=== PATIENT | female | born 1945 | race Caucasian/White ===

== ENCOUNTER 2016-12-30 20:30 | Outpatient (CLI) | payer MEDICARE | END 2016-12-30 20:31 | disposition home or self-care (01) | LOC: SLEEPLAB 20:30 | PROVIDERS: ATTEND Physician Assistant | DX: G47.33 Obstructive sleep apnea (adult) (pediatric) (principal); E11.9 Type 2 diabetes mellitus without complications; I10 Essential (primary) hypertension; K21.9 Gastro-esophageal reflux disease without esophagitis; G47.00 Insomnia, unspecified; R35.1 Nocturia; F41.9 Anxiety disorder, unspecified; G47.10 Hypersomnia, unspecified | CPT/HCPCS: 95810 ==

== ENCOUNTER 2017-03-17 20:30 | Outpatient (CLI) | payer MEDICARE | END 2017-03-17 20:31 | disposition home or self-care (01) | LOC: SLEEPLAB 20:30 | PROVIDERS: ATTEND Physician Assistant | DX: G47.33 Obstructive sleep apnea (adult) (pediatric) (principal); R06.83 Snoring; R53.83 Other fatigue; R51 Headache; E66.9 Obesity, unspecified; K21.9 Gastro-esophageal reflux disease without esophagitis; E11.9 Type 2 diabetes mellitus without complications; F41.9 Anxiety disorder, unspecified; R35.1 Nocturia | CPT/HCPCS: 95811 ==

== ENCOUNTER 2019-09-30 12:21 | Inpatient (IN) | payer MEDICARE, OTHER ==
[~2019-09-30 12:21] MED LIST: Atropine Sulfate 1 mg/10 ml Syringe ONE
[2019-09-30] MEDS ORDERED: Furosemide 40 MG/4 ML VIAL ONE (13:20)
[2019-09-30 17:32] LABS: CKMB 2.5 ng/mL (0-6.6)
[2019-09-30] MEDS ORDERED: Acetaminophen 500 MG TAB PO PRN (19:22)
[2019-09-30] MEDS ORDERED: Dextrose 50% Abboject 50 ML SYRINGE SLOW IVP PRN (19:22)
[2019-09-30] MEDS ORDERED: Ondansetron PF 4 MG/2 ML Vial IVP PRN (19:22)
[2019-09-30] MEDS ORDERED: Dextrose 5% in Water 1,000 ML IV PRN (19:22)
[2019-09-30] MEDS ORDERED: Ondansetron ODT 4 MG TAB PO PRN (19:22)
[2019-09-30] MEDS ORDERED: HumaLOG 300 UNITS/3 ML VIAL SC PRN (19:22)
[2019-09-30] MEDS ORDERED: hydrALAZINE 20 MG/ML VIAL SLOW IVP PRN (19:22)
[2019-09-30] MEDS ORDERED: Mometasone 200 MCG/Formoterol 5 MCG 120 PUFF INHALER INH SCH (20:30)
--- NOTE | 2019-09-30 20:40 | HP ---
PRIMARY CARE PROVIDER: Helen Cardenas. CHIEF COMPLAINT: Shortness of breath. HISTORY OF PRESENT ILLNESS: This is a 74-year-old female, who presents to [facility] Emergency Department complaining of progressive shortness of breath with associated swelling of the lower extremities with dyspnea on exertion. The patient has noted progressive swelling with a recent increase of her Lasix from 20 to 40 mg over the last several days without improvement. The patient states she normally ambulates performing most activities of daily living, but has become increasingly short of breath with exertion. The patient states she has difficulty laying flat with becoming short of breath as well. The patient denies any known prior history of congestive heart failure or hospitalizations for the same condition. The patient admits to increased home stress with illness to her daughter, as well as taking care of her . The patient denied any specific change to her chronic medication regimens and states she was recently treated for urinary tract infection in the last 2 to 3 weeks. The patient denied any documented fever, chills, or hemoptysis. The patient denied any change to her bowel habits. The patient denied any specific travel history. In the emergency room, the patient underwent general evaluation including chest imaging showing pulmonary edema bilaterally. BNP greater than 500 at which point patient received Lasix 40 mg IV push x1 dose. The patient was transferred to the telemetry unit for further evaluation. PAST MEDICAL HISTORY: 1. Hypertension. 2. Diabetes mellitus type 2. 3. Morbid obesity. 4. Asthma. 5. Depression. 6. Degenerative joint disease. PAST SURGICAL HISTORY: 1. Status post appendectomy. 2. Status post hysterectomy. 3. Status post tonsillectomy. 4. Status post bilateral tubal ligation. CURRENT MEDICATIONS: 1. Symbicort 160/4.5 two puffs inhaled b.i.d. 2. Prozac 20 mg p.o. at bedtime. 3. Furosemide 40 mg p.o. daily. 4. Losartan/HCTZ 100/25 mg one tablet p.o. daily. 5. Pregabalin 100 mg p.o. b.i.d. 6. Restasis one drop to each eye daily. ALLERGIES: NO KNOWN DRUG ALLERGIES. FAMILY HISTORY: Positive for hypertension. SOCIAL HISTORY: , residing in [place], [place]. Retired. Limited ability to perform activities of daily living due to degenerative joint disease and shortness of breath. No alcohol, tobacco, or illicit drug use. REVIEW OF SYSTEMS: CONSTITUTIONAL: Negative for weight loss or gain, ability to conduct usual activities. SKIN: Negative for rash, itching. EYES: Negative for double vision, pain. ENT/MOUTH: Negative for nose bleeding, neck stiffness, pain, tenderness. CARDIOVASCULAR: Negative for palpitations, dyspnea on exertion, orthopnea. RESPIRATORY: Negative for shortness of breath, wheezing, cough, hemoptysis, fever or night sweats. GASTROINTESTINAL: Negative for poor appetite, abdominal pain, heartburn, nausea, vomiting, constipation, or diarrhea. GENITOURINARY: Negative for urgency, frequency, dysuria, nocturia. MUSCULOSKELETAL: Negative for pain, swelling. NEUROLOGIC/PSYCHIATRIC: Negative for anxiety, depression. ALLERGY/IMMUNOLOGIC: Negative for skin rash, bleeding tendency. Otherwise negative except as stated per HPI. PHYSICAL EXAMINATION: VITAL SIGNS: Blood pressure 173/81, pulse 82, respiratory rate 18, temperature 98.4 degrees Fahrenheit, O2 saturation 96% on room air. GENERAL APPEARANCE: This is a 74-year-old female, alert and oriented x3, pleasant, smiling, in no acute distress. HEENT: Pupils are equal, round, reactive to light and accommodation. Extraocular muscles are intact. No scleral icterus. No conjunctival injection. Nares patent. OP is clear. Teeth in fair repair. NECK: Supple. No cervical adenopathy. No thyromegaly. No carotid bruits. No JVD appreciated. Cervical spine with limited range of motion in the terminal degrees of rotation and extension. CHEST: Diminished breath sounds bilaterally with basilar crackles. CARDIOVASCULAR: S1 and S2 with distant heart sounds. No murmur, rub, or gallop appreciated. ABDOMEN: Obese. Soft with tenderness to palpation in the left upper quadrant. No palpable mass. Landmarks are difficult to palpate due to patient's body habitus. Bowel sounds positive in all 4 quadrants. EXTREMITIES: Warm and dry with fair turgor. 1 to 2+ pitting edema in bilateral lower extremities. Pulses palpable distally at the dorsalis pedis, posterior tibial, and popliteal arteries bilaterally. Capillary refill less than 2 seconds. NEUROLOGIC: Cranial nerves 2 through 12 are grossly intact. No focal or lateralizing signs appreciated. PERTINENT LABORATORY AND X-RAY FINDINGS: Sodium 142, potassium 4.4, chloride 106, CO2 of 25, BUN 20, creatinine 0.96, estimated GFR 57, glucose 166, calcium 9.8. LFTs within normal limits. Troponin I ranged between 0.106 to 0.125. BNP 508, previously noted 37, 03/24/2014. CBC showed a white blood cell count of 9.0, hemoglobin 11, hematocrit 36, platelet count 206 with normal differential. Urinalysis dated 09/30/2019, positive for protein, nitrite and small leukocyte esterase. 21 to 50 wbc's per high-power field, 4-6 squamous epithelial cells with 1+ bacteria. EKG dated 09/30/2019, by my interpretation shows sinus mechanism with first-degree AV block. Normal R-wave progression noted in the precordial leads. Normal axis. No acute ST-T wave changes appreciated. ASSESSMENT AND PLAN: 1. New onset congestive heart failure exacerbation. The patient will be admitted to the telemetry unit. We will obtain 2D transthoracic echocardiogram for valvular assessment in conjunction with ejection fraction and wall motion determination. Consider ischemic workup including potential left heart catheterization. Continue aspirin 81 mg daily. Lasix 40 mg IV b.i.d. Consult Cardiology Service in the a.m. Check TSH level. 2. Dyspnea on exertion secondary to #1. We will continue oxygen supplementation as needed to maintain O2 saturations greater than or equal to 90%. See #1 above. 3. Elevated troponin I. Question of type 2 myocardial infarction not in the context of demand ischemia due to #1. Consult Cardiology Service in the a.m. for any further recommendations. 4. Hypertension. Resume home blood pressure regimen and monitor clinical response. P.r.n. hydralazine. 5. Diabetes mellitus type 2. Confirm home diabetic regimen. Insulin sliding scale for reflexive coverage. ADA diet. 6. Prophylaxis. SCDs while in bed. Pepcid 20 mg p.o. b.i.d. PT evaluation for functional assessment in the a.m. 7. Code status is do not attempt resuscitation confirmed with the patient. Surrogate medical decision maker is the patient's spouse. Job ID: [id number]
[2019-09-30 21:13] LABS: Troponin I 0.123 ng/mL (< 0.028)
[2019-09-30] MEDS: Pregabalin 50 MG CAP PO SCH (21:28)
[2019-09-30] MEDS: FLUoxetine HCl 20 MG CAP PO SCH (21:30)
[2019-09-30] MEDS: HumaLOG 300 UNITS/3 ML VIAL SC PRN (21:33)
[2019-10-01 04:58] LABS: Band 1 % (5-11); Eosinophils 2 % (0-10); Hemoglobin 10.8 g/dL (12.0-16.0); Hypochromia SLIGHT = 6-15 cells (100X) (0-5/hpf); Lymphocytes 23 % (21-51); MDiff Complete? YES; Mean Corpuscular HGB CONC 32.4 g/dL (32.0-36.0); Mean Corpuscular Hemoglobin 28.6 pg (27.0-31.0); Mean Corpuscular Volume 88.2 fL (78.0-98.0); Mean Platelet Volume 9.3 fL (7.4-10.4); Monocytes 7 % (0-10); Neutrophil 67 % (42-75); Platelet Count 191 thou/uL (130-400); Platelet Morphology Comment Appears Adequate; RBC Distribution Width 13.3 % (11.5-14.5); Red Blood Cell (RBC) Count 3.76 mill/uL (4.20-5.40)
[2019-10-01 05:29] LABS: Anion Gap 9 mmol/L (10-20); BUN (Urea Nitrogen) 20 mg/dL (9.8-20.1); Calc. Creatinine Clearance 96 mL/min (70-130); Calcium 9.4 mg/dL (7.8-10.44); Carbon Dioxide 28 mmol/L (23-31); Cardiac Risk 6.7 (Less than 4.5); Chloride 106 mmol/L (98-107); Cholesterol 180 mg/dl (< 200 Desired); Estimated GFR-MDRD 51; Glucose 169 mg/dL (83-110); HDL Cholesterol 27 mg/dL (>60 Neg Risk); LDL Cholesterol, Calculated 126 mg/dL; Potassium 4.3 mmol/L (3.5-5.1); Sodium 139 mmol/L (136-145); Triglycerides 136 mg/dL (Less than 150)
[2019-10-01] MEDS: Furosemide 40 MG/4 ML VIAL SLOW IVP SCH ×2 (05:41→12:56)
[2019-10-01] MEDS: Mometasone 200 MCG/Formoterol 5 MCG 120 PUFF INHALER INH SCH ×2 (07:52→18:46)
[2019-10-01] MEDS: Losartan/Hydrochlorothiazide 100 mg/25 mg Tablet PO SCH (09:02)
[2019-10-01] MEDS: Pregabalin 50 MG CAP PO SCH ×2 (09:02→20:24)
[2019-10-01] MEDS: Aspirin 81 mg Enteric Coated Tablet PO SCH (09:09)
[2019-10-01] MEDS ORDERED: Communication Order-Pharmacy FS SCH (11:30)
--- NOTE | 2019-10-01 12:21 | CON ---
DATE OF CONSULTATION: HISTORY OF PRESENT ILLNESS: The patient is a 74-year-old woman, who presented with increasing dyspnea and lower extremity swelling. The patient has previously undergone a cardiac evaluation many years ago. She states she underwent a cardiac catheterization,and was found to have only mild coronary artery disease. The patient suffers from diabetes mellitus and morbid obesity. For the past few months she started noting having increasing lower extremity swelling. She reported having dyspnea on exertion. The patient went to see a electrical logger, who stated that she had evidence of significant asthma. She was placed on inhalers. The patient continues to be dyspneic. The patient also has reported for the past few months having substernal chest discomfort. She states this occurs with exertion. The discomfort is also associated with discomfort radiating down both her arms. This seems to be relieved with rest. The patient has multiple cardiac risk factors including diabetes mellitus, hypertension, and a family history of coronary artery disease. PAST MEDICAL HISTORY: 1. Asthma. 2. Diabetes mellitus. 3. Dyslipidemia. 4. Morbid obesity. 5. Depression. PAST SURGICAL HISTORY: Appendectomy, hysterectomy, tonsillectomy, and tubal ligation. MEDICATIONS ON ADMISSION: 1. Losartan/HCTZ 2. Symbicort 160/4.5 two puffs b.i.d. 3. Prozac 20 at bedtime. ALLERGIES: NO KNOWN DRUG ALLERGIES. SOCIAL HISTORY: Nonsmoker. REVIEW OF SYSTEMS: Ten-point system otherwise unremarkable. FAMILY HISTORY: There is a positive family history of heart disease. SOCIAL HISTORY: Nonsmoker. ALLERGIES: NO KNOWN DRUG ALLERGIES. PHYSICAL EXAMINATION: GENERAL: Morbidly obese woman, in no acute distress. VITAL SIGNS: Blood pressure 123/60. NECK: No jugular venous distention. LUNGS: Clear to auscultation. HEART: Regular rate and rhythm. Normal S1 and S2. No murmurs. ABDOMEN: Markedly distended. EXTREMITIES: Moderate bilateral edema. VASCULAR: Radial pulses 2+. LABORATORY DATA: Sodium 139, potassium 4.3, chloride 106, bicarbonate 28, BUN 20, creatinine 1.0, and glucose 169. Troponin is 0.123. White blood cell count 6.0 , hemoglobin 10.8, hematocrit 33.2, and platelets 191. DIAGNOSTIC DATA: EKG Normal sinus rhythm with first-degree AV block. IMPRESSION: 1. Congestive heart failure, probably secondary to diastolic dysfunction and cor pulmonale. 2. Exertional chest discomfort suspicious for ischemic heart disease. 3. Hypertension. 4. Diabetes mellitus. 5. Asthma. 6. Morbid obesity. This patient presents with congestive heart failure, probably secondary to diastolic dysfunction. We will check the patient's echocardiogram. We will start the patient on lipid-lowering medication. Further recommendation will follow. Job ID: [id number] MTDD
--- NOTE | 2019-10-01 12:48 | PDOC.HOSPP ---
- Subjective Encounter Date: 10/01/19 Encounter Time: 12:40 Subjective: f/u for new-onset CHF and ? cardiac ischemia. Feels better overall and diuresing with IV Lasix. Likely will have LHC in am. - Objective Vital Signs & Weight: Vital Signs (12 hours) Temp Pulse Pulse Pulse Resp BP BP 10/01/19 11:18 97.6 F 80 17 10/01/19 09:35 65 73 138/65 145/68 H 10/01/19 07:00 98.5 F 61 16 10/01/19 03:42 98.7 F 76 18 BP Pulse Ox 10/01/19 11:18 135/58 L 97 10/01/19 09:35 10/01/19 07:00 123/60 96 10/01/19 03:42 146/57 H 94 L Weight Weight 282 lb 9.6 oz I&O: 09/30/19 10/01/19 10/02/19 06:59 06:59 06:59 Intake Total 550 Output Total 500 Balance 50 Result Diagrams: 10/01/19 04:16 10/01/19 04:16 Additional Labs: Accuchecks 10/01/19 09/30/19 05:53 20:45 POC Glucose 178 H 222 H Radiology Reviewed by me: Yes (Echo - EF 45-50%, diast dysfn) EKG Reviewed by me: Yes (Tele - SR with PVC's) Hospitalist ROS - Medication Medications: Active Medications Generic Name Dose Route Start Last Admin Trade Name Freq PRN Reason Stop Dose Admin Aspirin 81 mg 10/01/19 09:00 10/01/19 09:09 Ecotrin PO 81 mg DAILY KOFI Administration Fluoxetine HCl 20 mg 09/30/19 21:00 09/30/19 21:30 Prozac PO 20 mg HS KOFI Administration Furosemide 40 mg 10/01/19 06:00 10/01/19 05:41 Lasix SLOW IVP 40 mg 0600,1400 KOFI Administration HCTZ/Losartan Potassium 1 tab 10/01/19 09:00 10/01/19 09:02 Hyzaar 100/25 PO 1 tab DAILY KOFI Administration Insulin Human Lispro 0 units 09/30/19 19:22 09/30/19 21:33 Humalog SC 2 unit .BEDTIME SLIDING SC PRN Administration Bedtime Correctional Scale Mometasone Furoate/Formoterol Fumar 2 puff 10/01/19 06:30 10/01/19 07:52 Dulera 200 Mcg/5 Mcg Inhaler INH 2 puff BID-RT KOFI Administration Pantoprazole Sodium 40 mg 09/30/19 21:00 09/30/19 21:30 Protonix PO 40 mg HS KOFI Administration Pregabalin 100 mg 09/30/19 21:00 10/01/19 09:02 Lyrica PO 100 mg BID KOFI Administration - Exam General Appearance: NAD, awake alert Eye: PERRL, anicteric sclera ENT: normocephalic atraumatic, no oropharyngeal lesions Neck: supple, symmetric, no JVD, no thyromegaly, no lymphadenopathy Heart: RRR, no murmur, no gallops, no rubs, normal peripheral pulses Heart - other findings: S1, S2 Respiratory: no tachypnea Respiratory - other findings: diminished in bases, few crackles Gastrointestinal: soft, non-tender, non-distended, normal bowel sounds, no palpable masses Gastrointestinal - other findings: obese Extremities: no cyanosis Extremities - other findings: mild peripheral edema Skin: normal turgor, no lesions Neurological: cranial nerve grossly intact, no new deficit Musculoskeletal: normal tone, normal strength, no muscle wasting Psychiatric: normal affect, A&O x 3 Hosp A/P (1) Acute combined systolic (congestive) and diastolic (congestive) heart failure Code(s): I50.41 - ACUTE COMBINED SYSTOLIC AND DIASTOLIC (CONGESTIVE) HRT FAIL Status: Acute Plan: Plan for LHC in am to evaluate coronary anatomy, continue ASA/Lasix, NPO after MN (2) Dyspnea on exertion Code(s): R06.00 - DYSPNEA, UNSPECIFIED Status: Acute Plan: Improved with diuresis, see above (3) Type 2 myocardial infarction Code(s): I21.A1 - MYOCARDIAL INFARCTION TYPE 2 Status: Acute Plan: Plan for cardiac catheterization in am, ASA/Statin for d/c (4) DM II (diabetes mellitus, type II), controlled Code(s): E11.9 - TYPE 2 DIABETES MELLITUS WITHOUT COMPLICATIONS Status: Chronic Plan: ISS, ADA, DM education (5) HTN (hypertension) Code(s): I10 - ESSENTIAL (PRIMARY) HYPERTENSION Status: Chronic Qualifiers: Hypertension type: essential hypertension Qualified Code(s): I10 - Essential (primary) hypertension Plan: Resume home BP regimen, serial monitoring - Plan PT/OT, psych social worker, out of bed/ambulate, DVT proph w/SCDs Stable currently Continue Lasix 40mg IV BID Plan for cardiac catheterization in am Continue ASA DM education AM lab: BMP, A1C
[2019-10-01] MEDS: cycloSPORINE 0.05% Ophthalmic Droperette EA EYE SCH (12:56)
[2019-10-01] MEDS: FLUoxetine HCl 20 MG CAP PO SCH (20:24)
[2019-10-01] MEDS: Rosuvastatin 20 MG TAB PO SCH (20:26)
[2019-10-02 04:39] LABS: Hemoglobin A1c 7.6 % (4.0-6.0)
[2019-10-02 04:52] LABS: Anion Gap 10 mmol/L (10-20); BUN (Urea Nitrogen) 29 mg/dL (9.8-20.1); Calc. Creatinine Clearance 73 mL/min (70-130); Calcium 9.2 mg/dL (7.8-10.44); Carbon Dioxide 29 mmol/L (23-31); Chloride 101 mmol/L (98-107); Estimated GFR-MDRD 37; Glucose 232 mg/dL (83-110); Potassium 4.2 mmol/L (3.5-5.1); Sodium 136 mmol/L (136-145)
[2019-10-02] MEDS: Pregabalin 50 MG CAP PO SCH ×2 (06:01→21:05)
[2019-10-02] MEDS: Aspirin 81 mg Enteric Coated Tablet PO SCH (06:01)
[2019-10-02] MEDS: Furosemide 40 MG/4 ML VIAL SLOW IVP SCH ×2 (06:01→14:37)
[2019-10-02] MEDS: Losartan/Hydrochlorothiazide 100 mg/25 mg Tablet PO SCH (06:01)
[2019-10-02] MEDS: Mometasone 200 MCG/Formoterol 5 MCG 120 PUFF INHALER INH SCH ×2 (07:24→19:06)
[2019-10-02] MEDS ORDERED: Nitroglycerin 100MG/250ML BOT 250 ML ONE (07:25)
[2019-10-02] MEDS ORDERED: Verapamil 5 MG/2 ML VIAL ONE (07:25)
[2019-10-02] MEDS ORDERED: Heparin 10,000 UNITS/1 ML VIAL ONE (07:25)
[2019-10-02] MEDS ORDERED: Midazolam HCl 2 mg/2 ml Vial ONE (07:47)
--- NOTE | 2019-10-02 09:48 | PDOC.HOSPP ---
- Subjective Encounter Date: 10/02/19 Encounter Time: 09:35 Subjective: Code Sourav called due to bradycardia now with complete heart block, CP and some ST elevation s/p heart cath this am showing multivessel extensive coronary disease. Received Atropine/IVF NS bolus/O2 with plans for return to technology lab teacher for potential PCI vs CV evaluation for bypass. - Objective Vital Signs & Weight: Vital Signs (12 hours) Temp Pulse Resp BP Pulse Ox 10/02/19 09:00 97.6 F 54 L 17 118/58 L 98 10/02/19 03:38 98.5 F 69 20 166/76 H 93 L 10/01/19 23:41 73 131/62 Weight Weight 281 lb 1.6 oz I&O: 10/01/19 10/02/19 10/03/19 06:59 06:59 06:59 Intake Total 1230 244 Output Total 1400 700 Balance -170 -456 Result Diagrams: 10/01/19 04:16 10/02/19 04:17 Additional Labs: Accuchecks 10/02/19 10/02/19 10/01/19 09:37 05:48 20:25 POC Glucose 250 H 226 H 198 H 10/01/19 16:58 POC Glucose 201 H Laboratory Tests 09/30/19 09/30/19 09/30/19 10:17 16:34 20:27 Creatinine Hemoglobin A1c Troponin I 0.106 H 0.125 H 0.123 H 10/01/19 10/02/19 04:16 04:17 Creatinine 1.05 Hemoglobin A1c 7.6 H Troponin I Radiology Reviewed by me: Yes (Echo - EF 45-50%, diast dsfxn) EKG Reviewed by me: Yes (Tele - sinus caroline, complete heart block transiently, transient ST elevatio) Hospitalist ROS - Medication Medications: Active Medications Generic Name Dose Route Start Last Admin Trade Name Freq PRN Reason Stop Dose Admin Aspirin 81 mg 10/01/19 09:00 10/02/19 06:01 Ecotrin PO 81 mg DAILY KOFI Administration Cyclosporine 0 ml 10/01/19 09:00 10/01/19 12:56 Restasis EA EYE 0.4 ml DAILY KOFI Administration Fluoxetine HCl 20 mg 09/30/19 21:00 10/01/19 20:24 Prozac PO 20 mg HS KOFI Administration Furosemide 40 mg 10/01/19 06:00 10/02/19 06:01 Lasix SLOW IVP 40 mg 0600,1400 KOFI Administration HCTZ/Losartan Potassium 1 tab 10/01/19 09:00 10/02/19 06:01 Hyzaar 100/25 PO 1 tab DAILY KOFI Administration Insulin Human Lispro 0 units 09/30/19 19:22 09/30/19 21:33 Humalog SC 2 unit .BEDTIME SLIDING SC PRN Administration Bedtime Correctional Scale Mometasone Furoate/Formoterol Fumar 2 puff 10/01/19 06:30 10/02/19 07:24 Dulera 200 Mcg/5 Mcg Inhaler INH Not Given BID-RT KOFI Pantoprazole Sodium 40 mg 09/30/19 21:00 10/01/19 20:24 Protonix PO 40 mg HS KOFI Administration Pregabalin 100 mg 09/30/19 21:00 10/02/19 06:01 Lyrica PO 100 mg BID KOFI Administration Rosuvastatin Calcium 20 mg 10/01/19 21:00 10/01/19 20:26 Crestor PO 20 mg HS KOFI Administration - Exam General Appearance: awake alert General - other findings: pale Eye: PERRL, anicteric sclera ENT: normocephalic atraumatic, no oropharyngeal lesions Neck: supple, symmetric, no JVD, no thyromegaly, no lymphadenopathy Heart: RRR, no murmur, no gallops, no rubs, normal peripheral pulses Heart - other findings: S1, S2 Respiratory: CTAB, no wheezes, no rales, no ronchi, normal chest expansion Gastrointestinal: soft, non-tender, non-distended, normal bowel sounds, no palpable masses Extremities: no cyanosis, no clubbing, no edema Extremities - other findings: R wrist bandage in place, no hematoma noted Skin: normal turgor Neurological: cranial nerve grossly intact, no new deficit Musculoskeletal: normal tone, normal strength Psychiatric: normal affect, A&O x 3 Hosp A/P (1) Complete heart block Code(s): I44.2 - ATRIOVENTRICULAR BLOCK, COMPLETE Status: Acute Plan: Resolved currently, s/p Atropine x 1 dose, transfer to CCU for close monitoring , ? need for PM, Cardiology following (2) CAD (coronary artery disease) Code(s): I25.10 - ATHSCL HEART DISEASE OF [place] CORONARY ARTERY W/O ANG PCTRS Status: Acute Plan: Med mgmt due to extensive diffuse disease with calcium deposits, no CABG indicated (3) Acute combined systolic (congestive) and diastolic (congestive) heart failure Code(s): I50.41 - ACUTE COMBINED SYSTOLIC AND DIASTOLIC (CONGESTIVE) HRT FAIL Status: Acute (4) Dyspnea on exertion Code(s): R06.00 - DYSPNEA, UNSPECIFIED Status: Acute Plan: Improved with diuresis, continue supportive mgmt (5) Type 2 myocardial infarction Code(s): I21.A1 - MYOCARDIAL INFARCTION TYPE 2 Status: Acute (6) DM II (diabetes mellitus, type II), controlled Code(s): E11.9 - TYPE 2 DIABETES MELLITUS WITHOUT COMPLICATIONS Status: Chronic (7) HTN (hypertension) Code(s): I10 - ESSENTIAL (PRIMARY) HYPERTENSION Status: Chronic Qualifiers: Hypertension type: essential hypertension Qualified Code(s): I10 - Essential (primary) hypertension - Plan plan discussed w/ family, PT/OT, medical social worker, DVT proph w/SCDs Stable currently Continue Lasix 40mg IV BID Cardiovascular surgery consult appreciated Atropine IV x 1 dose now IV NS bolus x 500ml O2 via NC Continue ASA DM education AM lab: BMP, CBC Transfer to CCU
[2019-10-02] MEDS ORDERED: Nitroglycerin 0.4 MG TAB (25 Tab Bottle) SL PRN (09:59)
[2019-10-02] MEDS ORDERED: Sodium Chloride 0.9% 200 ML IV PRN (09:59)
[2019-10-02] MEDS ORDERED: Acetaminophen/Codeine 30-300mg Tablet PO PRN (09:59)
[2019-10-02] MEDS ORDERED: Nitroglycerin 50 MG/250 ML BOT 250 ML ONE (10:09)
[2019-10-02] MEDS ORDERED: Iopamidol 370 76% 50 ML VIAL FS ONE (10:10)
[2019-10-02] MEDS ORDERED: Iopamidol 370 76% 100 ML VIAL ONE (10:10)
[2019-10-02] MEDS ORDERED: Nitroglycerin 50 MG/250 ML BOT 250 ML IVPB SCH (11:00)
[2019-10-02] MEDS: cycloSPORINE 0.05% Ophthalmic Droperette EA EYE SCH (12:01)
[2019-10-02] MEDS: HumaLOG 300 UNITS/3 ML VIAL SC PRN ×3 (12:53→21:03)
[2019-10-02] MEDS: FLUoxetine HCl 20 MG CAP PO SCH (21:06)
[2019-10-02] MEDS: Rosuvastatin 20 MG TAB PO SCH (21:07)
[2019-10-02] MEDS: Icosapent Ethyl 1 GM CAPSULE PO SCH (21:07)
--- NOTE | 2019-10-02 22:12 | CON ---
DATE OF CONSULTATION: HISTORY OF PRESENT ILLNESS: Kristy Mcdonald is a morbidly obese female from [place], [place], who sees Dr. Helen Cardenas there and has seen Dr. Garcia in office. She is 130 kg, presented to the ER with chest pain and shortness of breath. She was taken to the cardiac medical lab scientist. Please review the Cardiology's note, who was found to have coronary artery disease. LAD 80% and RCA 30%. She is now in the ICU, reason for consult. Since she has limitation of activity because of significant back pain from her previous back problems. She has gained considerable weight. She denies any coughing or wheezing right now. PAST MEDICAL HISTORY: Asthma, obesity, sleep apnea, poor compliance, diabetes, and hypertension. PAST SURGICAL HISTORY: Previous surgeries; appendix, hysterectomy, tonsillectomy, tubal ligation, and cardiac cath. SOCIAL HISTORY: No alcohol. No smoking. ALLERGIES: NONE. HOME MEDICINE: 1. CPAP 7 cm. 2. Losartan. 3. Lasix. 4. Prozac 20. 5. Symbicort. REVIEW OF SYSTEMS: Ten-point negative. PHYSICAL EXAMINATION: GENERAL: She is awake and alert, no distress. VITAL SIGNS: Saturations are 91 on 1 L, blood pressure 90/55, respirations 18, and pulse 80. CHEST: Decreased breath sounds. No wheezing. CARDIAC: Normal S1 and S2. No gallops. ABDOMEN: No masses. LABORATORY DATA: Creatinine 1.38. Chest x-ray shows haziness, cardiomegaly, and possibly pleural effusion. Otherwise lab; white count 6000, H and H 10 and 30, and platelet count 190. IMPRESSION: 1. Status post cardiac cath, coronary artery disease. 2. Morbid obesity, sleep apnea, asthma, hypertension, diabetes, and chronic pain. PLAN: Nasal CPAP at nighttime. Continue Symbicort. Supportive care. Await input from Cardiology/Cardiac Surgery. Consultation note, 70 minutes, 50% direct patient care. Job ID: [id number]
--- NOTE | 2019-10-02 23:46 | CON ---
DATE OF CONSULTATION: HISTORY OF PRESENT ILLNESS: This is a 74-year-old lady with cardiovascular disease with risk factors of insulin-dependent diabetes mellitus for 30 years, hypertension, dyslipidemia, and obesity. She has had a rather inactive lifestyle for the past 2 years due to arthritis in her back and neck and typically gets short of breath with minimal exertion. Recently, for about 2 weeks, she has noticed occasional bilateral arm discomfort with exertion. She was being seen at the [facility] this week with urinary tract infection symptoms that had not improved with Cipro when she mentioned that she became short of breath when returning from the bathroom. A troponin was 0.1 and BNP was 500, and she was transferred here for further evaluation. PAST MEDICAL HISTORY: As noted above. PAST SURGICAL HISTORY: Includes bilateral tubal ligation as well as appendectomy, hysterectomy, tonsillectomy. SOCIAL HISTORY: She is . Her is not here this evening, but I spoke to him on the phone. As mentioned, she is rather inactive. MEDICATIONS: At home include: 1. Symbicort for asthma. 2. Prozac. 3. Lasix. 4. Losartan/HCTZ. 5. Pregabalin. 6. Eye drops. ALLERGIES: SHE HAS NO KNOWN ALLERGIES. PHYSICAL EXAMINATION: GENERAL: She is a very pleasant lady. VITAL SIGNS: Weight 281 pounds, height 5 feet 1 inch. NECK: No carotid bruits. LUNGS: Clear to auscultation anteriorly. CARDIOVASCULAR: With no murmurs. Heart rate is 80. ABDOMEN: Obese. EXTREMITIES: She has no peripheral edema at this time, although she has been in bed all day. She has palpable dorsalis pedis pulses. EKG presently is normal with occasional PVC. This morning, post catheterization, she had a type [address]-T wave changes that resolved. Cardiac catheterization shows a mid LAD stenosis of about 75%. Distal LAD toward the apex is diffusely and critically diseased. Circumflex with about 80% or 90% stenosis in its midportion with a very small bifurcating distal circumflex system that is too small to graft and appears to be diffusely diseased. The right coronary artery without significant proximal disease, but distally with no vessels that could even be considered for grafting. Post the last image, there was some staining in the right coronary artery. Echo shows normal left ventricular systolic function. At this time, the patient's coronary targets are rather poor for coronary bypass grafting with diffuse distal disease, potential targets being the mid LAD. The circumflex could not be grafted, and unless the proximal right coronary developed significant disease at the site of staining, I do not think there is anything on the right to graft. I have gone over this with the patient and , and medical management with possible stenting is being considered. Job ID: [id number]
[2019-10-03] MEDS: HumaLOG 300 UNITS/3 ML VIAL SC PRN ×5 (03:59→21:11)
[2019-10-03] MEDS: Furosemide 40 MG/4 ML VIAL SLOW IVP SCH (05:31)
[2019-10-03] MEDS: Mometasone 200 MCG/Formoterol 5 MCG 120 PUFF INHALER INH SCH ×2 (07:08→18:35)
[2019-10-03 07:36] VITALS: BMI 43.0
[2019-10-03] MEDS: Aspirin 81 mg Enteric Coated Tablet PO SCH (08:37)
[2019-10-03] MEDS: Pregabalin 50 MG CAP PO SCH ×2 (08:37→21:09)
[2019-10-03] MEDS: Losartan/Hydrochlorothiazide 100 mg/25 mg Tablet PO SCH (08:37)
[2019-10-03] MEDS: Icosapent Ethyl 1 GM CAPSULE PO SCH ×2 (08:38→22:14)
--- NOTE | 2019-10-03 08:42 | PRG ---
DATE OF SERVICE: 10/03/2019 SUBJECTIVE: This morning, she is awake, alert, responsive. No shortness of breath. OBJECTIVE: VITAL SIGNS: Pulse 65, respirations 16, saturations 98% on 1 L, blood pressure 120/57. CHEST: No wheezing or crackles. CARDIAC: Normal S1 and S2. No gallops. ABDOMEN: No masses. ASSESSMENT: 1. Coronary artery disease, status post chest pain. 2. Sleep apnea, poor compliance. 3. Asthma. 4. Morbid obesity. PLAN: Otherwise, continue present treatment. She can probably be transferred out of the ICU any time. Pulmonary will follow while in the hospital. Job ID: [id number]
[2019-10-03] MEDS ORDERED: Clopidogrel Bisulfate 300 MG TAB PO SCH (09:15)
[2019-10-03] MEDS: cycloSPORINE 0.05% Ophthalmic Droperette EA EYE SCH (11:12)
--- NOTE | 2019-10-03 14:51 | PDOC.HOSPP ---
- Subjective Encounter Date: 10/03/19 Encounter Time: 14:45 Subjective: f/u for transient heart block s/p cardiac cath and Type II [place] on current ASA/ Plavix/Imdur. Feels better overall and no CP and minimal SOB. - Objective Vital Signs & Weight: Vital Signs (12 hours) Temp Pulse Pulse Pulse Resp BP BP 10/03/19 09:53 98.9 F 60 16 10/03/19 09:44 83 72 160/78 H 129/52 L 10/03/19 08:00 10/03/19 07:08 65 16 10/03/19 07:00 98.2 F 10/03/19 04:00 98.7 F Pulse Ox Pulse Ox Pulse Ox 10/03/19 09:53 10/03/19 09:44 98 98 10/03/19 08:00 99 10/03/19 07:08 98 10/03/19 07:00 10/03/19 04:00 Weight Weight 258 lb 2.581 oz Most Recent Monitor Data Heart Rate from ECG 76 NIBP 117/54 NIBP BP-Mean 75 Respiration from ECG 17 SpO2 96 I&O: 10/02/19 10/03/19 10/04/19 06:59 06:59 06:59 Intake Total 1230 694.2 311 Output Total 1400 1800 650 Balance -170 -1105.8 -339 Result Diagrams: 10/01/19 04:16 10/02/19 04:17 Additional Labs: Accuchecks 10/03/19 10/03/19 10/03/19 11:13 07:32 04:01 POC Glucose 336 H 241 H 237 H 10/02/19 10/02/19 20:48 16:18 POC Glucose 294 H 217 H Laboratory Tests 09/30/19 09/30/19 09/30/19 10:17 16:34 20:27 Creatinine Hemoglobin A1c Troponin I 0.106 H 0.125 H 0.123 H 10/01/19 10/02/19 04:16 04:17 Creatinine 1.05 Hemoglobin A1c 7.6 H Troponin I Radiology Reviewed by me: Yes (Echo - EF 45-50%) EKG Reviewed by me: Yes (Tele - SR) Hospitalist ROS - Medication Medications: Active Medications Generic Name Dose Route Start Last Admin Trade Name Freq PRN Reason Stop Dose Admin Aspirin 81 mg 10/01/19 09:00 10/03/19 08:37 Ecotrin PO 81 mg DAILY KOFI Administration Cyclosporine 0 ml 10/01/19 09:00 10/03/19 11:12 Restasis EA EYE Not Given DAILY KOFI Fluoxetine HCl 20 mg 09/30/19 21:00 10/02/19 21:06 Prozac PO 20 mg HS KOFI Administration HCTZ/Losartan Potassium 1 tab 10/01/19 09:00 10/03/19 08:37 Hyzaar 100/25 PO 1 tab DAILY KOFI Administration Insulin Human Lispro 0 units 09/30/19 19:22 10/03/19 03:59 Humalog SC 2 unit .BEDTIME SLIDING SC PRN Administration Bedtime Correctional Scale Insulin Human Lispro 0 units 10/02/19 12:16 10/03/19 11:13 Humalog SC 6 unit .MILD SLIDING SCALE PRN Administration Mild Correctional Scale Isosorbide Mononitrate 30 mg 10/03/19 09:00 10/03/19 08:37 Imdur Er PO 30 mg DAILY KOFI Administration Miscellaneous Medication 2 gm 10/02/19 21:00 10/03/19 08:38 Vascepa PO 2 gm BID KOFI Administration Mometasone Furoate/Formoterol Fumar 2 puff 10/01/19 06:30 10/03/19 07:08 Dulera 200 Mcg/5 Mcg Inhaler INH 2 puff BID-RT KOFI Administration Pantoprazole Sodium 40 mg 09/30/19 21:00 10/02/19 21:06 Protonix PO 40 mg HS KOFI Administration Pregabalin 100 mg 09/30/19 21:00 10/03/19 08:37 Lyrica PO 100 mg BID KOFI Administration Rosuvastatin Calcium 20 mg 10/01/19 21:00 10/02/19 21:07 Crestor PO 20 mg HS KOFI Administration - Exam General Appearance: NAD, awake alert Eye: PERRL, anicteric sclera ENT: normocephalic atraumatic, no oropharyngeal lesions Neck: supple, symmetric, no JVD, no thyromegaly Heart: RRR, no murmur, no gallops, no rubs, normal peripheral pulses Heart - other findings: S1, S2 Respiratory: CTAB Respiratory - other findings: diminished in bases Gastrointestinal: soft, non-tender, non-distended, normal bowel sounds, no palpable masses Extremities: no cyanosis, no clubbing, no edema Skin: normal turgor, no lesions Neurological: cranial nerve grossly intact, no new deficit Musculoskeletal: normal tone, normal strength Psychiatric: normal affect, A&O x 3 Hosp A/P (1) Complete heart block Code(s): I44.2 - ATRIOVENTRICULAR BLOCK, COMPLETE Status: Acute Plan: Resolved, continue tele monitoring, transient episode, likely will need low- dose beta-nelda in near future (2) CAD (coronary artery disease) Code(s): I25.10 - ATHSCL HEART DISEASE OF [place] CORONARY ARTERY W/O ANG PCTRS Status: Acute Plan: Medical mgmt, ASA/Plavix (3) Acute combined systolic (congestive) and diastolic (congestive) heart failure Code(s): I50.41 - ACUTE COMBINED SYSTOLIC AND DIASTOLIC (CONGESTIVE) HRT FAIL Status: Acute Plan: EF 45-50%, continue Lasix/Losartan (4) Dyspnea on exertion Code(s): R06.00 - DYSPNEA, UNSPECIFIED Status: Acute Plan: Improved, no O2 requirement (5) Type 2 myocardial infarction Code(s): I21.A1 - MYOCARDIAL INFARCTION TYPE 2 Status: Acute Plan: Medical mgmt, no acute surgical intervention planned (6) DM II (diabetes mellitus, type II), controlled Code(s): E11.9 - TYPE 2 DIABETES MELLITUS WITHOUT COMPLICATIONS Status: Chronic (7) HTN (hypertension) Code(s): I10 - ESSENTIAL (PRIMARY) HYPERTENSION Status: Chronic Qualifiers: Hypertension type: essential hypertension Qualified Code(s): I10 - Essential (primary) hypertension - Plan PT/OT, out of bed/ambulate, DVT proph w/SCDs Stable currently Continue Lasix 40mg po daily Cardiovascular surgery consult appreciated Continue ASA/Plavix Continue Imdur OOB/ambulate DM education AM lab: BMP, CBC
[2019-10-03 14:57] LABS: #Eosinphils 0.4 thou/uL (0.0-0.7); #Lymphocytes 1.8 thou/uL (1.20-3.40); #Monocytes 0.8 thou/uL (0.11-0.59); #Neutrophils 6.3 thou/uL (1.40-6.50); %Basophils 0.5 % (0.0-1.0); %Eosinophils 3.9 % (0.0-10.0); %Lymphocytes 19.1 % (21.0-51.0); %Monocytes 8.9 % (0.0-10.0); %Neutrophils 67.6 % (42.0-75.0); Hemoglobin 11.8 g/dL (12.0-16.0); Mean Corpuscular HGB CONC 32.7 g/dL (32.0-36.0); Mean Corpuscular Volume 85.5 fL (78.0-98.0); Mean Platelet Volume 9.2 fL (7.4-10.4); Platelet Count 235 thou/uL (130-400); RBC Distribution Width 13.3 % (11.5-14.5); Red Blood Cell (RBC) Count 4.23 mill/uL (4.20-5.40); White Blood Cell (WBC) Count 9.3 thou/uL (4.8-10.8)
[2019-10-03 15:19] LABS: Anion Gap 14 mmol/L (10-20); BUN (Urea Nitrogen) 38 mg/dL (9.8-20.1); Calc. Creatinine Clearance 61 mL/min (70-130); Calcium 9.4 mg/dL (7.8-10.44); Carbon Dioxide 26 mmol/L (23-31); Chloride 98 mmol/L (98-107); Estimated GFR-MDRD 33; Glucose 185 mg/dL (83-110); Potassium 3.9 mmol/L (3.5-5.1); Sodium 134 mmol/L (136-145)
--- NOTE | 2019-10-03 17:43 | PQF ---
CLINICAL DOCUMENTATION IMPROVEMENT CLARIFICATION FORM: ICD-10 Updated PLEASE DO AN ADDENDUM TO THE PROGRESS NOTE WITH ANY DOCUMENTATION UPDATES OR ADDITIONS AND CARRY THROUGH TO DC SUMMARY. THANK YOU. DATE: 10/03/2019 ATTN: Dr. Hammer Please exercise your independent, professional judgment in responding to the clarification form. Clinical indicators are provided on the bottom of this form for your review Please check appropriate box(s): [ ] Associated Diagnosis: [ x ] Other diagnosis AKI [ ] Unable to determine In addition, please specify: Present on Admission (POA): [ ] Yes [ x ] No [ ] Unable to determine For continuity of documentation, please document condition throughout progress notes and discharge summary. Thank You. CLINICAL INDICATORS - SIGNS / SYMPTOMS/ LABS are present in the medical record: H&P 09/29: LAB: creatinine 0.96 estimated GFR 57 09/30 10/01 10/02 LAB: Creatinine 1.05 1.38 1.58 Estimated GFR 51 37 33 RISKS: H&P 09/29: PMH HTN, DM 2, Morbid obesity. A/P: New onset congestive heart failure exacerbation. Lasix 40 mg IV bid. TREATMENT: Order 10/01: NS 200ml IV one Post Cardiac Catheterization Lab Order for BMP 09/30, 10/01 Lab Order for Chem 7 10/02, 10/03 Thank you, Leona (This form is maintained as a part of the permanent medical record) 2014 [employer]. All Rights Reserved Leona Esparza RN, [email or web address] Cell [facility]
--- NOTE | 2019-10-03 17:44 | EKG ---
Test Reason : CODE GREEN Blood Pressure : / mmHG Vent. Rate : 067 BPM Atrial Rate : 067 BPM P-R Int : 214 ms QRS Dur : 100 ms QT Int : 426 ms P-R-T Axes : 066 072 103 degrees QTc Int : 450 ms Sinus rhythm with sinus arrhythmia with 1st degree A-V block ST abnormality, possible digitalis effect Abnormal ECG No previous ECGs available Confirmed by DR. Gisele VINCENT ([id number]) on 10/03/2019 5:43:54 PM Referred By: ZEENAT Confirmed By:DR. Gisele VINCENT
--- NOTE | 2019-10-03 17:44 | EKG ---
Test Reason : Blood Pressure : / mmHG Vent. Rate : 080 BPM Atrial Rate : 080 BPM P-R Int : 224 ms QRS Dur : 104 ms QT Int : 414 ms P-R-T Axes : 045 060 098 degrees QTc Int : 477 ms Sinus rhythm with 1st degree A-V block with frequent Premature ventricular complexes Nonspecific ST and T wave abnormality Prolonged QT Abnormal ECG When compared with ECG of 02-OCT-2019 @09:39:01, Confirmed by DR. Gisele VINCENT ([id number]) on 10/03/2019 5:44:10 PM Referred By: MEI Confirmed By:DR. Gisele VINCENT
[2019-10-03] MEDS: FLUoxetine HCl 20 MG CAP PO SCH (21:10)
[2019-10-03] MEDS: Rosuvastatin 20 MG TAB PO SCH (21:10)
[2019-10-04 05:18] LABS: Anion Gap 13 mmol/L (10-20); BUN (Urea Nitrogen) 45 mg/dL (9.8-20.1); Calc. Creatinine Clearance 39 mL/min (70-130); Calcium 8.5 mg/dL (7.8-10.44); Carbon Dioxide 26 mmol/L (23-31); Chloride 99 mmol/L (98-107); Estimated GFR-MDRD 18; Glucose 241 mg/dL (83-110); Sodium 134 mmol/L (136-145)
[2019-10-04] MEDS: HumaLOG 300 UNITS/3 ML VIAL SC PRN ×4 (06:07→22:27)
[2019-10-04] MEDS: Mometasone 200 MCG/Formoterol 5 MCG 120 PUFF INHALER INH SCH ×2 (07:25→18:41)
[2019-10-04] MEDS ORDERED: Furosemide 40 MG TAB PO SCH (07:30)
[2019-10-04] MEDS: Pregabalin 50 MG CAP PO SCH ×2 (08:02→21:01)
[2019-10-04] MEDS: Aspirin 81 mg Enteric Coated Tablet PO SCH (08:02)
[2019-10-04] MEDS: Icosapent Ethyl 1 GM CAPSULE PO SCH ×2 (08:03→21:02)
[2019-10-04] MEDS: cycloSPORINE 0.05% Ophthalmic Droperette EA EYE SCH (08:03)
[2019-10-04] MEDS: Clopidogrel Bisulfate 75 MG TAB PO SCH (08:03)
--- NOTE | 2019-10-04 08:33 | EKG ---
Test Reason : Blood Pressure : / mmHG Vent. Rate : 057 BPM Atrial Rate : 057 BPM P-R Int : 242 ms QRS Dur : 100 ms QT Int : 444 ms P-R-T Axes : 047 -04 074 degrees QTc Int : 432 ms Sinus bradycardia with 1st degree A-V block Otherwise normal ECG When compared with ECG of 02-OCT-2019 10:21, (Unconfirmed) Premature ventricular complexes are no longer Present Questionable change in QRS axis Non-specific change in ST segment in Lateral leads QT has shortened Confirmed by DR. Gisele VINCENT ([id number]) on 10/04/2019 8:33:02 AM Referred By: MEI Confirmed By:DR. Gisele VINCENT
--- NOTE | 2019-10-04 08:34 | EKG ---
Test Reason : Blood Pressure : / mmHG Vent. Rate : 065 BPM Atrial Rate : 065 BPM P-R Int : 238 ms QRS Dur : 096 ms QT Int : 452 ms P-R-T Axes : 049 036 009 degrees QTc Int : 470 ms Sinus rhythm with 1st degree A-V block with occasional Premature ventricular complexes Cannot rule out Anterior infarct , age undetermined Abnormal ECG When compared with ECG of 02-OCT-2019 16:03, (Unconfirmed) Premature ventricular complexes are now Present Nonspecific T wave abnormality now evident in Inferior leads Confirmed by DR. Gisele VINCENT ([id number]) on 10/04/2019 8:34:24 AM Referred By: MEI Confirmed By:DR. Gisele VINCENT
--- NOTE | 2019-10-04 10:14 | PRG ---
DATE OF SERVICE: 10/04/2019 SUBJECTIVE: The patient is doing reasonably well. Wants to go home. OBJECTIVE: VITAL SIGNS: Temperature 97.6, pulse 68, respirations 20, O2 sat 97% on room air. Blood pressure 130/63. HEENT: Unremarkable. NECK: No adenopathy or JVD. CHEST: Clear without wheezing or rhonchi. CARDIAC: S1, S2. Regular. ABDOMEN: Soft. EXTREMITIES: No edema. ASSESSMENT: Stable pulmonary status. PLAN: The patient is good for discharge to home from our standpoint. She can follow up with me in 6 weeks. Job ID: [id number]
[2019-10-04] MEDS: Sodium Chloride 0.9% 1,000 ML IV SCH ×4 (11:25→21:08)
--- NOTE | 2019-10-04 11:42 | PDOC.HOSPP ---
- Subjective Encounter Date: 10/04/19 Encounter Time: 11:30 Subjective: f/u for Type II [place] and transient heart block currently medically managed with ASA/Plavix/Imdur/Ranexa. Feels good overall. - Objective Vital Signs & Weight: Vital Signs (12 hours) Temp Pulse Resp BP Pulse Ox 10/04/19 07:59 97.6 F 68 20 138/63 97 10/04/19 04:00 97.6 F 59 L 20 109/55 L 94 L 10/04/19 00:14 98 Weight Weight 282 lb 4.8 oz Most Recent Monitor Data Heart Rate from ECG 76 NIBP 117/54 NIBP BP-Mean 75 Respiration from ECG 17 SpO2 96 I&O: 10/03/19 10/04/19 10/05/19 06:59 06:59 06:59 Intake Total 694.2 1401 Output Total 1800 1150 Balance -1105.8 251 Result Diagrams: 10/03/19 14:48 10/04/19 04:07 Additional Labs: Accuchecks 10/04/19 10/04/19 10/03/19 10:35 05:36 20:38 POC Glucose 348 H 266 H 334 H 10/03/19 16:39 POC Glucose 278 H Laboratory Tests 09/30/19 09/30/19 09/30/19 10:17 16:34 20:27 Creatinine Hemoglobin A1c Troponin I 0.106 H 0.125 H 0.123 H 10/01/19 10/02/19 04:16 04:17 Creatinine 1.05 Hemoglobin A1c 7.6 H Troponin I EKG Reviewed by me: Yes (Tele - SR) Hospitalist ROS - Medication Medications: Active Medications Generic Name Dose Route Start Last Admin Trade Name Freq PRN Reason Stop Dose Admin Aspirin 81 mg 10/01/19 09:00 10/04/19 08:02 Ecotrin PO 81 mg DAILY KOFI Administration Clopidogrel Bisulfate 75 mg 10/04/19 09:00 10/04/19 08:03 Plavix PO 75 mg DAILY KOFI Administration Cyclosporine 0 ml 10/01/19 09:00 10/04/19 08:03 Restasis EA EYE Not Given DAILY KOFI Fluoxetine HCl 20 mg 09/30/19 21:00 10/03/19 21:10 Prozac PO 20 mg HS KOFI Administration Insulin Human Lispro 0 units 09/30/19 19:22 10/03/19 21:11 Humalog SC 4 unit .BEDTIME SLIDING SC PRN Administration Bedtime Correctional Scale Insulin Human Lispro 0 units 10/02/19 12:16 10/04/19 06:07 Humalog SC 4 unit .MILD SLIDING SCALE PRN Administration Mild Correctional Scale Isosorbide Mononitrate 60 mg 10/04/19 09:00 10/04/19 08:02 Imdur PO 60 mg DAILY KOFI Administration Miscellaneous Medication 2 gm 10/02/19 21:00 10/04/19 08:03 Vascepa PO 2 gm BID KOFI Administration Mometasone Furoate/Formoterol Fumar 2 puff 10/01/19 06:30 10/04/19 07:25 Dulera 200 Mcg/5 Mcg Inhaler INH 2 puff BID-RT KOFI Administration Pantoprazole Sodium 40 mg 09/30/19 21:00 10/03/19 21:10 Protonix PO 40 mg HS KOFI Administration Pregabalin 100 mg 09/30/19 21:00 10/04/19 08:02 Lyrica PO 100 mg BID KOFI Administration Rosuvastatin Calcium 20 mg 10/01/19 21:00 10/03/19 21:10 Crestor PO 20 mg HS KOFI Administration - Exam General Appearance: NAD, awake alert Eye: PERRL, anicteric sclera ENT: normocephalic atraumatic, no oropharyngeal lesions Neck: supple, symmetric, no JVD, no thyromegaly, no lymphadenopathy Heart: RRR, no murmur, no gallops, no rubs, normal peripheral pulses Heart - other findings: S1, S2 Respiratory: CTAB, no rales, no ronchi, normal chest expansion Gastrointestinal: soft, non-tender, non-distended, normal bowel sounds, no palpable masses Gastrointestinal - other findings: obese Extremities: no cyanosis, no clubbing, no edema Skin: normal turgor, no lesions Neurological: cranial nerve grossly intact, no new deficit Musculoskeletal: normal tone, generalized weakness Psychiatric: normal affect, A&O x 3 Hosp A/P (1) CAD (coronary artery disease) Code(s): I25.10 - ATHSCL HEART DISEASE OF [place] CORONARY ARTERY W/O ANG PCTRS Status: Acute Plan: Continue med mgmt currently including ASA/Plavix/Imdur/Ranexa, may need repeat cardiac catheterization prior to d/c (2) Acute kidney injury superimposed on CKD Code(s): N17.9 - ACUTE KIDNEY FAILURE, UNSPECIFIED; N18.9 - CHRONIC KIDNEY DISEASE, UNSPECIFIED Status: Acute Plan: Start NS @ 50ml/h, hold all nephrotoxic meds and limit contrast exposure, serial monitoring (3) Complete heart block Code(s): I44.2 - ATRIOVENTRICULAR BLOCK, COMPLETE Status: Acute Plan: Transient, continue current med mgmt (4) Acute combined systolic (congestive) and diastolic (congestive) heart failure Code(s): I50.41 - ACUTE COMBINED SYSTOLIC AND DIASTOLIC (CONGESTIVE) HRT FAIL Status: Acute Plan: Continue med mgmt, see above #1 (5) Dyspnea on exertion Code(s): R06.00 - DYSPNEA, UNSPECIFIED Status: Acute (6) Type 2 myocardial infarction Code(s): I21.A1 - MYOCARDIAL INFARCTION TYPE 2 Status: Acute (7) DM II (diabetes mellitus, type II), controlled Code(s): E11.9 - TYPE 2 DIABETES MELLITUS WITHOUT COMPLICATIONS Status: Chronic (8) HTN (hypertension) Code(s): I10 - ESSENTIAL (PRIMARY) HYPERTENSION Status: Chronic Qualifiers: Hypertension type: essential hypertension Qualified Code(s): I10 - Essential (primary) hypertension - Plan PT/OT, social worker aide, out of bed/ambulate, DVT proph w/SCDs Stable currently Start IVF NS @ 50ml/h Cardiovascular surgery consult appreciated Continue ASA/Plavix Continue Imdur Hold all nephrotoxic meds and limit contrast exposure OOB/ambulate DM education AM lab: BMP
[2019-10-04 11:44] LABS: Albumin 3.3 g/dL (3.4-4.8); Anion Gap 17 mmol/L (10-20); BUN (Urea Nitrogen) 50 mg/dL (9.8-20.1); BUN/Creatinine Ratio 21.19; Calc. Creatinine Clearance 43 mL/min (70-130); Calcium 8.9 mg/dL (7.8-10.44); Carbon Dioxide 20 mmol/L (23-31); Chloride 99 mmol/L (98-107); Estimated GFR-MDRD 20; Glucose 322 mg/dL (83-110); Phosphorus 3.8 mg/dL (2.3-4.7); Potassium 4.4 mmol/L (3.5-5.1); Sodium 132 mmol/L (136-145)
[2019-10-04] MEDS: FLUoxetine HCl 20 MG CAP PO SCH (21:00)
[2019-10-04] MEDS: Rosuvastatin 20 MG TAB PO SCH (21:00)
[2019-10-04] MEDS: Temazepam 15 MG CAP PO PRN (21:01)
[2019-10-04] MEDS: Acetaminophen/Codeine 30-300mg Tablet PO PRN (21:02)
[2019-10-05 04:59] LABS: Anion Gap 15 mmol/L (10-20); BUN (Urea Nitrogen) 46 mg/dL (9.8-20.1); Calc. Creatinine Clearance 71 mL/min (70-130); Carbon Dioxide 19 mmol/L (23-31); Chloride 102 mmol/L (98-107); Estimated GFR-MDRD 35; Sodium 132 mmol/L (136-145)
[2019-10-05 05:00] LABS: Calcium 8.5 mg/dL (7.8-10.44); Glucose 294 mg/dL (83-110)
[2019-10-05] MEDS: HumaLOG 300 UNITS/3 ML VIAL SC PRN ×4 (06:22→20:57)
[2019-10-05] MEDS: Mometasone 200 MCG/Formoterol 5 MCG 120 PUFF INHALER INH SCH ×2 (07:00→18:55)
--- NOTE | 2019-10-05 08:19 | PDOC.HOSPP ---
- Subjective Encounter Date: 10/05/19 Encounter Time: 12:20 Subjective: Patient without complaints. Awaiting cath on Monday. No swelling from the fluids overnight. - Objective Vital Signs & Weight: Vital Signs (12 hours) Temp Pulse Resp BP Pulse Ox 10/05/19 07:48 96 10/05/19 07:45 97.1 F L 68 18 122/58 L 96 10/05/19 04:00 97.9 F 66 16 139/62 96 Weight Weight 291 lb Most Recent Monitor Data Heart Rate from ECG 76 NIBP 117/54 NIBP BP-Mean 75 Respiration from ECG 17 SpO2 96 I&O: 10/04/19 10/05/19 10/06/19 06:59 06:59 06:59 Intake Total 1401 2810 Output Total 1150 900 Balance 251 1910 Result Diagrams: 10/03/19 14:48 10/05/19 03:59 Additional Labs: Accuchecks 10/05/19 10/04/19 10/04/19 05:48 20:30 16:36 POC Glucose 313 H 355 H 300 H 10/04/19 10:35 POC Glucose 348 H Hospitalist ROS - Review of Systems Constitutional: denies: fever, chills Respiratory: denies: cough, shortness of breath Cardiovascular: denies: chest pain, palpitations Gastrointestinal: denies: nausea, vomiting, abdominal pain - Medication Medications: Active Medications Generic Name Dose Route Start Last Admin Trade Name Freq PRN Reason Stop Dose Admin Acetaminophen/Codeine Phosphate 2 tab 10/02/19 09:59 10/04/19 21:02 Tylenol #3 PO 2 tab Q4H PRN Administration Moderate Pain (4-6) Aspirin 81 mg 10/01/19 09:00 10/04/19 08:02 Ecotrin PO 81 mg DAILY KOFI Administration Clopidogrel Bisulfate 75 mg 10/04/19 09:00 10/04/19 08:03 Plavix PO 75 mg DAILY KOFI Administration Cyclosporine 0 ml 10/01/19 09:00 10/04/19 08:03 Restasis EA EYE Not Given DAILY KOFI Fluoxetine HCl 20 mg 09/30/19 21:00 10/04/19 21:00 Prozac PO 20 mg HS KOFI Administration Insulin Human Lispro 0 units 09/30/19 19:22 10/04/19 22:27 Humalog SC 5 unit .BEDTIME SLIDING SC PRN Administration Bedtime Correctional Scale Insulin Human Lispro 0 units 10/02/19 12:16 10/05/19 06:22 Humalog SC 5 unit .MILD SLIDING SCALE PRN Administration Mild Correctional Scale Isosorbide Mononitrate 60 mg 10/04/19 09:00 10/04/19 08:02 Imdur PO 60 mg DAILY KOFI Administration Miscellaneous Medication 2 gm 10/02/19 21:00 10/04/19 21:02 Vascepa PO 2 gm BID KOFI Administration Mometasone Furoate/Formoterol Fumar 2 puff 10/01/19 06:30 10/05/19 07:00 Dulera 200 Mcg/5 Mcg Inhaler INH 2 puff BID-RT KOFI Administration Pantoprazole Sodium 40 mg 09/30/19 21:00 10/04/19 21:00 Protonix PO 40 mg HS KOFI Administration Pregabalin 100 mg 09/30/19 21:00 10/04/19 21:01 Lyrica PO 100 mg BID KOFI Administration Ranolazine 500 mg 10/04/19 21:00 10/04/19 21:00 Ranexa PO 500 mg BID KOFI Administration Rosuvastatin Calcium 20 mg 10/01/19 21:00 10/04/19 21:00 Crestor PO 20 mg HS KOFI Administration Sodium Chloride 10 ml 10/04/19 21:00 10/04/19 21:08 Flush - Normal Saline IVF 10 ml Q12HR KOFI Administration Temazepam 15 mg 09/30/19 19:22 10/04/19 21:01 Restoril PO 15 mg HSPRN PRN Administration Insomnia - Exam General Appearance: NAD, awake alert ENT: moist mucosa Heart: RRR, no murmur, no gallops, no rubs Respiratory: CTAB, no wheezes, no rales, no ronchi Gastrointestinal: soft, non-tender, non-distended, normal bowel sounds Extremities - other findings: trace edema bilateral lower extremities Psychiatric: normal affect, normal behavior, A&O x 3 Hosp A/P (1) CAD (coronary artery disease) Code(s): I25.10 - ATHSCL HEART DISEASE OF [place] CORONARY ARTERY W/O ANG PCTRS Status: Acute (2) Acute kidney injury superimposed on CKD Code(s): N17.9 - ACUTE KIDNEY FAILURE, UNSPECIFIED; N18.9 - CHRONIC KIDNEY DISEASE, UNSPECIFIED Status: Acute (3) Complete heart block Code(s): I44.2 - ATRIOVENTRICULAR BLOCK, COMPLETE Status: Resolved (4) Acute combined systolic (congestive) and diastolic (congestive) heart failure Code(s): I50.41 - ACUTE COMBINED SYSTOLIC AND DIASTOLIC (CONGESTIVE) HRT FAIL Status: Acute (5) Type 2 myocardial infarction Code(s): I21.A1 - MYOCARDIAL INFARCTION TYPE 2 Status: Acute (6) DM II (diabetes mellitus, type II), controlled Code(s): E11.9 - TYPE 2 DIABETES MELLITUS WITHOUT COMPLICATIONS Status: Chronic (7) HTN (hypertension) Code(s): I10 - ESSENTIAL (PRIMARY) HYPERTENSION Status: Chronic Qualifiers: Hypertension type: essential hypertension Qualified Code(s): I10 - Essential (primary) hypertension - Plan PT/OT, executive secretary social welfare, out of bed/ambulate, DVT proph w/SCDs Stable currently Creatinine markedly improved with IV fluids, will stop to prevent volume overload, recheck creatinine tomorrow Continue ASA/Plavix Continue Imdur Hold all nephrotoxic meds and limit contrast exposure OOB/ambulate DM education Plan to cath on Monday per Dr. Lazo AM lab: BMP
[2019-10-05] MEDS: Sodium Chloride 0.9% 1,000 ML IV SCH (08:41)
[2019-10-05] MEDS: Aspirin 81 mg Enteric Coated Tablet PO SCH (09:33)
[2019-10-05] MEDS: Clopidogrel Bisulfate 75 MG TAB PO SCH (09:33)
[2019-10-05] MEDS: Pregabalin 50 MG CAP PO SCH ×2 (09:33→20:56)
[2019-10-05] MEDS: Icosapent Ethyl 1 GM CAPSULE PO SCH ×2 (09:33→20:56)
[2019-10-05] MEDS: cycloSPORINE 0.05% Ophthalmic Droperette EA EYE SCH (10:13)
--- NOTE | 2019-10-05 14:04 | PDOC.CPN ---
- Subjective Date: 10/05/19 Time: 14:01 Interval history: No new issues. She is breathing better. Able to lay flat except for her neck issues but can breath normal lying flat. - Review of Systems General: denies: fever/chills, weight/appetite/sleep changes, night sweats, fatigue Respiratory: denies: cough, congestion, shortness of breath, exercise intolerance Cardiovascular: denies: chest pain, palpitation, edema, paroxysmal nocturnal dyspnea, orthopnea Gastrointestinal: denies: nausea, vomiting, diarrhea, constipation, abd pain, GI bleeding Musculoskeletal: denies: pain, tenderness, stiffness, swelling, arthritis/ arthralgias Neurological: denies: numbness, syncope, seizure, weakness - Objective Allergies/Adverse Reactions: Allergies Allergy/AdvReac Type Severity Reaction Status Date / Time No Known Allergies Allergy Unverified 09/30/19 18:44 Visit Medications: Current Medications Acetaminophen (Tylenol) 1,000 mg PO Q6H PRN PRN Reason: Mild Pain (1-3) Acetaminophen/Codeine Phosphate (Tylenol #3) 1 tab PO Q4H PRN PRN Reason: Mild Pain (1-3) Acetaminophen/Codeine Phosphate (Tylenol #3) 2 tab PO Q4H PRN PRN Reason: Moderate Pain (4-6) Last Admin: 10/04/19 21:02 Dose: 2 tab Aspirin (Ecotrin) 81 mg PO DAILY [facility] Last Admin: 10/05/19 09:33 Dose: 81 mg Clopidogrel Bisulfate (Plavix) 75 mg PO DAILY [facility] Last Admin: 10/05/19 09:33 Dose: 75 mg Cyclosporine (Restasis) 0 ml EA EYE DAILY [facility] Last Admin: 10/05/19 10:13 Dose: 0.4 ml Dextrose/Water (Dextrose 50%) 25 gm SLOW IVP PRN PRN PRN Reason: Hypoglycemia Fluoxetine HCl (Prozac) 20 mg PO HS [facility] Last Admin: 10/04/19 21:00 Dose: 20 mg Glucagon (Glucagon) 1 mg IM PRN PRN PRN Reason: Hypoglycemia Hydralazine HCl (Apresoline) 10 mg SLOW IVP Q4H PRN PRN Reason: SBP > 180 and HR < 70 Dextrose/Water (D5w) 1,000 mls @ 0 mls/hr IV .Q0M PRN PRN Reason: Hypoglycemia Insulin Human Lispro (Humalog) 0 units SC .BEDTIME SLIDING SC PRN PRN Reason: Bedtime Correctional Scale Last Admin: 10/04/19 22:27 Dose: 5 unit Insulin Human Lispro (Humalog) 0 units SC .MILD SLIDING SCALE PRN PRN Reason: Mild Correctional Scale Last Admin: 10/05/19 11:19 Dose: 6 unit Isosorbide Mononitrate (Imdur) 60 mg PO DAILY [facility] Last Admin: 10/05/19 09:33 Dose: 60 mg Miscellaneous Medication (Vascepa) 2 gm PO BID [facility] Last Admin: 10/05/19 09:33 Dose: 2 gm Mometasone Furoate/Formoterol Fumar (Dulera 200 Mcg/5 Mcg Inhaler) 2 puff INH BID-RT [facility] Last Admin: 10/05/19 07:00 Dose: 2 puff Nitroglycerin (Nitrostat) 0.4 mg SL Q5MIN PRN PRN Reason: Chest Pain Ondansetron HCl (Zofran Odt) 4 mg PO Q6H PRN PRN Reason: Nausea/Vomiting Ondansetron HCl (Zofran) 4 mg IVP Q6H PRN PRN Reason: Nausea/Vomiting Pantoprazole Sodium (Protonix) 40 mg PO [facility] Last Admin: 10/04/19 21:00 Dose: 40 mg Pregabalin (Lyrica) 100 mg PO BID [facility] Last Admin: 10/05/19 09:33 Dose: 100 mg Ranolazine (Ranexa) 500 mg PO BID [facility] Last Admin: 10/05/19 09:33 Dose: 500 mg Rosuvastatin Calcium (Crestor) 20 mg PO [facility] Last Admin: 10/04/19 21:00 Dose: 20 mg Sodium Chloride (Flush - Normal Saline) 10 ml IVF Q12HR [facility] Last Admin: 10/05/19 09:34 Dose: 10 ml Sodium Chloride (Flush - Normal Saline) 10 ml IVF PRN PRN PRN Reason: Saline Flush Temazepam (Restoril) 15 mg PO HSPRN PRN PRN Reason: Insomnia Last Admin: 10/04/19 21:01 Dose: 15 mg Vital Signs & Weight: Vital Signs Temp Pulse Resp BP Pulse Ox 10/05/19 11:16 98.8 F 63 17 135/59 L 96 10/05/19 07:48 96 10/05/19 07:45 97.1 F L 68 18 122/58 L 96 10/05/19 04:00 97.9 F 66 16 139/62 96 Weight 291 lb - Physical Exam General: alert & oriented x3 HEENT: mucus membranes moist Neck: supple neck Cardiac: regular rate and rhythm Lungs: clear to auscultation Neuro: grossly intact Abdomen: active bowel sounds Extremities: 1+ LE edema Skin: clear Musculoskeletal: no pain - Labs Result Diagrams: 10/03/19 14:48 10/05/19 03:59 Troponin/CKMB CK-MB (CK-2) 2.5 ng/mL (0-6.6) 09/30/19 16:34 Troponin I 0.123 ng/mL (< 0.028) H 09/30/19 20:27 - Telemetry Sinus rhythms and dysrhythmias: sinus rhythm - Assessment/Plan Assessment/Plan: 1. Ischemic CM EF at 45-50% 2. Mutivessel CAD. 3. Poor surgical candidate due to anatomy of disease. PLAN: - Being considered for PCI were possible. - CV stable at this time. - Plan for LHC and PCI Monday.
[2019-10-05] MEDS: FLUoxetine HCl 20 MG CAP PO SCH (20:55)
[2019-10-05] MEDS: Rosuvastatin 20 MG TAB PO SCH (20:56)
[2019-10-05] MEDS: Temazepam 15 MG CAP PO PRN (20:57)
[2019-10-05] MEDS ORDERED: Insulin Glargine 15 UNITS in Pre-Filled Syringe 1 EACH SC SCH (21:00)
[2019-10-06 04:43] LABS: Anion Gap 10 mmol/L (10-20); BUN (Urea Nitrogen) 36 mg/dL (9.8-20.1); Calc. Creatinine Clearance 89 mL/min (70-130); Calcium 8.7 mg/dL (7.8-10.44); Carbon Dioxide 28 mmol/L (23-31); Chloride 105 mmol/L (98-107); Estimated GFR-MDRD 45; Glucose 257 mg/dL (83-110); Potassium 4.1 mmol/L (3.5-5.1); Sodium 139 mmol/L (136-145)
[2019-10-06] MEDS: HumaLOG 300 UNITS/3 ML VIAL SC PRN ×4 (06:33→21:17)
[2019-10-06] MEDS: Mometasone 200 MCG/Formoterol 5 MCG 120 PUFF INHALER INH SCH ×2 (06:59→17:44)
[2019-10-06] MEDS: Pregabalin 50 MG CAP PO SCH ×2 (09:17→21:15)
[2019-10-06] MEDS: Clopidogrel Bisulfate 75 MG TAB PO SCH (09:17)
[2019-10-06] MEDS: Icosapent Ethyl 1 GM CAPSULE PO SCH ×2 (09:17→21:15)
[2019-10-06] MEDS: Aspirin 81 mg Enteric Coated Tablet PO SCH (09:17)
[2019-10-06] MEDS: cycloSPORINE 0.05% Ophthalmic Droperette EA EYE SCH (09:37)
--- NOTE | 2019-10-06 09:52 | PRG ---
DATE OF SERVICE: 10/06/2019 SUBJECTIVE: The patient is seen and examined at the bedside. She is doing quite well. She does not have much complaints to offer. No chest pain. No shortness of breath. Her peripheral edema is almost completely gone. She is able to ambulate and move her bowels daily. Her appetite is fair. OBJECTIVE: VITAL SIGNS: Blood pressure is 144/62, pulse is 75, temperature is 97.7, respiratory rate is 17, O2 saturation is 94% on room air. HEENT: Head is atraumatic and normocephalic. Eyes are PERRLA. Sclerae are nonicteric. Oral mucosa is moist. NECK: Supple. LUNGS: Clear. HEART: S1 and S2 normal. No S3. No S4. No any murmur. ABDOMEN: Soft, nontender. Bowel sounds are present. No organomegaly. EXTREMITIES: Lower extremities, trace of edema around both ankles. NEUROLOGIC: She is alert and oriented x4. There is no any motor or sensory deficits. LABORATORY DATA: Labs showed sodium of 139, potassium 4.1, chloride 105, CO2 of 28, BUN 36, creatinine 1.17, glucose is ranging from 268 to 383, calcium 8.7. Microbiology; urine 10,000 to 25,000 colonies per mL, normal skin graciela present. IMPRESSION: 1. Coronary artery disease. 2. Acute kidney injury, superimposed on chronic kidney injury, improving. 3. Acute combined systolic and diastolic heart failure, improved. 4. Type 2 myocardial infarction. 5. Diabetes mellitus type 2. 6. Hypertension. 7. Ischemic cardiomyopathy with left ventricular ejection fraction estimated at 45% to 50%. PLAN: The patient is doing well and she is scheduled for left heart catheterization and possible PCI on Monday. She has some questions to Cardiology Team and she has plan to address prior to the procedure. Otherwise, we are going to continue her clopidogrel and aspirin. We will intensify her diabetic coverage since her glycemia is running high. Job ID: [id number]
--- NOTE | 2019-10-06 14:11 | PDOC.CPN ---
- Subjective Date: 10/06/19 Time: 14:10 Interval history: Doing well. Breathing at baseline. Able to lay flat. No angina. - Review of Systems General: denies: fever/chills, weight/appetite/sleep changes, night sweats, fatigue Respiratory: denies: cough, congestion, shortness of breath, exercise intolerance Cardiovascular: denies: chest pain, palpitation, edema, paroxysmal nocturnal dyspnea, orthopnea Gastrointestinal: denies: nausea, vomiting, diarrhea, constipation, abd pain, GI bleeding Musculoskeletal: denies: pain, tenderness, stiffness, swelling, arthritis/ arthralgias Neurological: denies: numbness, syncope, seizure, weakness - Objective Allergies/Adverse Reactions: Allergies Allergy/AdvReac Type Severity Reaction Status Date / Time No Known Allergies Allergy Unverified 09/30/19 18:44 Visit Medications: Current Medications Acetaminophen (Tylenol) 1,000 mg PO Q6H PRN PRN Reason: Mild Pain (1-3) Acetaminophen/Codeine Phosphate (Tylenol #3) 1 tab PO Q4H PRN PRN Reason: Mild Pain (1-3) Acetaminophen/Codeine Phosphate (Tylenol #3) 2 tab PO Q4H PRN PRN Reason: Moderate Pain (4-6) Last Admin: 10/04/19 21:02 Dose: 2 tab Aspirin (Ecotrin) 81 mg PO DAILY [facility] Last Admin: 10/06/19 09:17 Dose: 81 mg Clopidogrel Bisulfate (Plavix) 75 mg PO DAILY [facility] Last Admin: 10/06/19 09:17 Dose: 75 mg Cyclosporine (Restasis) 0 ml EA EYE DAILY [facility] Last Admin: 10/06/19 09:37 Dose: 0.4 ml Dextrose/Water (Dextrose 50%) 25 gm SLOW IVP PRN PRN PRN Reason: Hypoglycemia Fluoxetine HCl (Prozac) 20 mg PO HS [facility] Last Admin: 10/05/19 20:55 Dose: 20 mg Glucagon (Glucagon) 1 mg IM PRN PRN PRN Reason: Hypoglycemia Hydralazine HCl (Apresoline) 10 mg SLOW IVP Q4H PRN PRN Reason: SBP > 180 and HR < 70 Dextrose/Water (D5w) 1,000 mls @ 0 mls/hr IV .Q0M PRN PRN Reason: Hypoglycemia Insulin Glargine 20 units/ (Miscellaneous Medication) 0.2 mls @ 0 mls/hr SC [facility] Insulin Human Lispro (Humalog) 0 units SC .BEDTIME SLIDING SC PRN PRN Reason: Bedtime Correctional Scale Last Admin: 10/05/19 20:57 Dose: 3 unit Insulin Human Lispro (Humalog) 0 units SC .AGGRESSIVE SLIDING PRN; Protocol PRN Reason: AGGRESSIVE SLIDING SCALE Last Admin: 10/06/19 11:00 Dose: 11 unit Isosorbide Mononitrate (Imdur) 60 mg PO DAILY [facility] Last Admin: 10/06/19 09:17 Dose: 60 mg Miscellaneous Medication (Vascepa) 2 gm PO BID [facility] Last Admin: 10/06/19 09:17 Dose: 2 gm Mometasone Furoate/Formoterol Fumar (Dulera 200 Mcg/5 Mcg Inhaler) 2 puff INH BID-RT [facility] Last Admin: 10/06/19 06:59 Dose: 2 puff Nitroglycerin (Nitrostat) 0.4 mg SL Q5MIN PRN PRN Reason: Chest Pain Ondansetron HCl (Zofran Odt) 4 mg PO Q6H PRN PRN Reason: Nausea/Vomiting Ondansetron HCl (Zofran) 4 mg IVP Q6H PRN PRN Reason: Nausea/Vomiting Pantoprazole Sodium (Protonix) 40 mg PO [facility] Last Admin: 10/05/19 20:56 Dose: 40 mg Pregabalin (Lyrica) 100 mg PO BID [facility] Last Admin: 10/06/19 09:17 Dose: 100 mg Ranolazine (Ranexa) 500 mg PO BID [facility] Last Admin: 10/06/19 09:17 Dose: 500 mg Rosuvastatin Calcium (Crestor) 20 mg PO [facility] Last Admin: 10/05/19 20:56 Dose: 20 mg Sodium Chloride (Flush - Normal Saline) 10 ml IVF Q12HR [facility] Last Admin: 10/06/19 09:18 Dose: 10 ml Sodium Chloride (Flush - Normal Saline) 10 ml IVF PRN PRN PRN Reason: Saline Flush Temazepam (Restoril) 15 mg PO HSPRN PRN PRN Reason: Insomnia Last Admin: 10/05/19 20:57 Dose: 15 mg Vital Signs & Weight: Vital Signs Temp Pulse Resp BP Pulse Ox 10/06/19 11:02 97.7 F 61 16 129/58 L 96 10/06/19 07:20 93 L 10/06/19 07:18 97.7 F 75 17 144/62 H 94 L 10/06/19 03:49 98.1 F 62 20 112/54 L 95 Weight 289 lb 6.4 oz - Physical Exam General: alert & oriented x3 HEENT: mucus membranes moist Neck: supple neck Cardiac: regular rate and rhythm Lungs: clear to auscultation Neuro: grossly intact Abdomen: active bowel sounds Extremities: 1+ LE edema Skin: clear Musculoskeletal: no pain - Labs Result Diagrams: 10/03/19 14:48 10/06/19 03:57 Troponin/CKMB CK-MB (CK-2) 2.5 ng/mL (0-6.6) 09/30/19 16:34 Troponin I 0.123 ng/mL (< 0.028) H 09/30/19 20:27 - Telemetry Sinus rhythms and dysrhythmias: sinus rhythm - Assessment/Plan Assessment/Plan: 1. Ischemic CM EF at 45-50% 2. Mutivessel CAD. 3. Poor surgical candidate due to anatomy of disease. PLAN: - Being considered for PCI. - CV stable at this time. - LHC and PCI Tomorrow by Dr Del Cid.
[2019-10-06] MEDS: Rosuvastatin 20 MG TAB PO SCH (21:14)
[2019-10-06] MEDS: FLUoxetine HCl 20 MG CAP PO SCH (21:15)
[2019-10-06] MEDS: Insulin Glargine 20 UNITS in Pre-Filled Syringe 1 EACH SC SCH (21:16)
[2019-10-07] MEDS ORDERED: Sodium Chloride 0.9% 500 ML IV SCH (00:01)
[2019-10-07] MEDS: Temazepam 15 MG CAP PO PRN (00:11)
[2019-10-07] MEDS: cycloSPORINE 0.05% Ophthalmic Droperette EA EYE SCH ×2 (06:06→21:07)
[2019-10-07] MEDS: Pregabalin 50 MG CAP PO SCH ×2 (06:08→21:08)
[2019-10-07] MEDS: Acetaminophen/Codeine 30-300mg Tablet PO PRN (06:08)
[2019-10-07] MEDS: Icosapent Ethyl 1 GM CAPSULE PO SCH ×2 (06:09→21:08)
[2019-10-07] MEDS: Mometasone 200 MCG/Formoterol 5 MCG 120 PUFF INHALER INH SCH ×2 (07:22→19:25)
--- NOTE | 2019-10-07 08:21 | PDOC.HOSPP ---
- Subjective Encounter Date: 10/07/19 Encounter Time: 11:40 Subjective: Patient with some mild chest pain this AM radiating to arms, now resolved. No shortness of breath. No edema. Hungry and waiting to go down for cath. - Objective Vital Signs & Weight: Vital Signs (12 hours) Temp Pulse Resp BP Pulse Ox 10/07/19 07:22 83 16 93 L 10/07/19 04:00 97.8 F 68 16 133/63 98 Weight Weight 284 lb 9.6 oz Most Recent Monitor Data Heart Rate from ECG 76 NIBP 117/54 NIBP BP-Mean 75 Respiration from ECG 17 SpO2 96 I&O: 10/06/19 10/07/19 10/08/19 06:59 06:59 06:59 Intake Total 1560 1260 Output Total 1800 2200 Balance -240 -940 Result Diagrams: 10/03/19 14:48 10/06/19 03:57 Additional Labs: Accuchecks 10/07/19 10/06/19 10/06/19 05:13 21:19 17:23 POC Glucose 279 H 206 H 256 H 10/06/19 10:32 POC Glucose 329 H Hospitalist ROS - Review of Systems Constitutional: denies: fever, chills Respiratory: denies: cough, shortness of breath Cardiovascular: reports: chest pain. denies: palpitations, edema Gastrointestinal: denies: nausea, vomiting, abdominal pain - Medication Medications: Active Medications Generic Name Dose Route Start Last Admin Trade Name Freq PRN Reason Stop Dose Admin Acetaminophen/Codeine Phosphate 2 tab 10/02/19 09:59 10/07/19 06:08 Tylenol #3 PO 2 tab Q4H PRN Administration Moderate Pain (4-6) Aspirin 81 mg 10/01/19 09:00 10/06/19 09:17 Ecotrin PO 81 mg DAILY [facility] Administration Clopidogrel Bisulfate 75 mg 10/04/19 09:00 10/06/19 09:17 Plavix PO 75 mg DAILY [facility] Administration Cyclosporine 0 ml 10/07/19 09:00 10/07/19 06:06 Restasis EA EYE 0.4 ml BID [facility] Administration Fluoxetine HCl 20 mg 09/30/19 21:00 10/06/19 21:15 Prozac PO 20 mg HS [facility] Administration Insulin Glargine 20 units/ 0.2 mls @ 0 mls/hr 10/06/19 21:00 10/06/19 21:16 Miscellaneous Medication SC 0.2 mls HS [facility] Administration Sodium Chloride 500 mls @ 50 mls/hr 10/07/19 00:01 10/07/19 00:00 Normal Saline 0.9% IV 10/07/19 10:00 500 mls .Q10H [facility] Administration Insulin Human Lispro 0 units 09/30/19 19:22 10/06/19 21:17 Humalog SC 2 unit .BEDTIME SLIDING SC PRN Administration Bedtime Correctional Scale Insulin Human Lispro 0 units 10/05/19 16:43 10/06/19 17:23 Humalog SC 9 unit .AGGRESSIVE SLIDING PRN Administration AGGRESSIVE SLIDING SCALE Protocol Isosorbide Mononitrate 60 mg 10/04/19 09:00 10/07/19 06:09 Imdur PO 60 mg DAILY [facility] Administration Miscellaneous Medication 2 gm 10/02/19 21:00 10/07/19 06:09 Vascepa PO 2 gm BID [facility] Administration Mometasone Furoate/Formoterol Fumar 2 puff 10/01/19 06:30 10/07/19 07:22 Dulera 200 Mcg/5 Mcg Inhaler INH 2 puff BID-RT [facility] Administration Pantoprazole Sodium 40 mg 09/30/19 21:00 10/06/19 21:15 Protonix PO 40 mg HS [facility] Administration Pregabalin 100 mg 09/30/19 21:00 10/07/19 06:08 Lyrica PO 100 mg BID [facility] Administration Ranolazine 500 mg 10/04/19 21:00 10/07/19 06:07 Ranexa PO 500 mg BID [facility] Administration Rosuvastatin Calcium 20 mg 10/01/19 21:00 10/06/19 21:14 Crestor PO 20 mg HS [facility] Administration Sodium Chloride 10 ml 10/04/19 21:00 10/06/19 21:16 Flush - Normal Saline IVF 10 ml Q12HR [facility] Administration Temazepam 15 mg 09/30/19 19:22 10/07/19 00:11 Restoril PO 15 mg HSPRN PRN Administration Insomnia - Exam General Appearance: NAD, awake alert ENT: moist mucosa Heart: RRR, no murmur, no gallops, no rubs Respiratory: CTAB, no wheezes, no rales, no ronchi Gastrointestinal: soft, non-tender, non-distended, normal bowel sounds Extremities: no edema Psychiatric: normal affect, normal behavior, A&O x 3 Hosp A/P (1) CAD (coronary artery disease) Code(s): I25.10 - ATHSCL HEART DISEASE OF [place] CORONARY ARTERY W/O ANG PCTRS Status: Acute (2) Acute kidney injury superimposed on CKD Code(s): N17.9 - ACUTE KIDNEY FAILURE, UNSPECIFIED; N18.9 - CHRONIC KIDNEY DISEASE, UNSPECIFIED Status: Acute (3) Complete heart block Code(s): I44.2 - ATRIOVENTRICULAR BLOCK, COMPLETE Status: Resolved (4) Acute combined systolic (congestive) and diastolic (congestive) heart failure Code(s): I50.41 - ACUTE COMBINED SYSTOLIC AND DIASTOLIC (CONGESTIVE) HRT FAIL Status: Acute (5) Type 2 myocardial infarction Code(s): I21.A1 - MYOCARDIAL INFARCTION TYPE 2 Status: Acute (6) DM II (diabetes mellitus, type II), controlled Code(s): E11.9 - TYPE 2 DIABETES MELLITUS WITHOUT COMPLICATIONS Status: Chronic (7) HTN (hypertension) Code(s): I10 - ESSENTIAL (PRIMARY) HYPERTENSION Status: Chronic Qualifiers: Hypertension type: essential hypertension Qualified Code(s): I10 - Essential (primary) hypertension - Plan PT/OT, social services coordinator, out of bed/ambulate, DVT proph w/SCDs Stable currently Creatinine markedly improved with IV fluids, stopped to prevent volume overload , creatinine stable and ok for cath Continue ASA/Plavix Continue Imdur Hold all nephrotoxic meds and limit contrast exposure OOB/ambulate DM education Plan to cath today AM lab: BMP
[2019-10-07] MEDS ORDERED: Communication Order-Pharmacy FS SCH (09:00)
[2019-10-07] MEDS ORDERED: Iopamidol 370 76% 100 ML VIAL ONE (09:32)
[2019-10-07] MEDS ORDERED: Heparin 10,000 UNITS/1 ML VIAL ONE (13:37)
[2019-10-07] MEDS ORDERED: Midazolam HCl 2 mg/2 ml Vial ONE (15:16)
[2019-10-07] MEDS ORDERED: Acetaminophen/Codeine 30-300mg Tablet PO PRN ×2 (16:43)
[2019-10-07] MEDS ORDERED: Nitroglycerin 0.4 MG TAB (25 Tab Bottle) SL PRN (16:43)
[2019-10-07] MEDS ORDERED: Sodium Chloride 0.9% 200 ML IV PRN (16:43)
[2019-10-07] MEDS: Aspirin 81 mg Enteric Coated Tablet PO SCH (18:03)
[2019-10-07] MEDS: Clopidogrel Bisulfate 75 MG TAB PO SCH (18:03)
[2019-10-07] MEDS: HumaLOG 300 UNITS/3 ML VIAL SC PRN ×2 (18:03→21:09)
[2019-10-07] MEDS ORDERED: Enoxaparin Sodium 60 MG/0.6 ML SYRINGE SC SCH (21:00)
[2019-10-07] MEDS: FLUoxetine HCl 20 MG CAP PO SCH (21:07)
[2019-10-07] MEDS: Rosuvastatin 20 MG TAB PO SCH (21:07)
[2019-10-07] MEDS: Insulin Glargine 20 UNITS in Pre-Filled Syringe 1 EACH SC SCH (21:09)
[2019-10-07] MEDS ORDERED: Heparin 25,000 units/D5W 500 ML IV SCH (23:00)
[2019-10-07] MEDS: Heparin 10,000 UNITS/ 10 ML VIAL SLOW IVP SCH (23:38)
[2019-10-08] MEDS: HumaLOG 300 UNITS/3 ML VIAL SC PRN ×2 (05:58→12:10)
[2019-10-08 06:27] LABS: #Eosinphils 0.3 thou/uL (0.0-0.7); #Lymphocytes 1.3 thou/uL (1.20-3.40); #Monocytes 0.7 thou/uL (0.11-0.59); %Basophils 0.3 % (0.0-1.0); %Eosinophils 3.8 % (0.0-10.0); %Lymphocytes 15.9 % (21.0-51.0); %Monocytes 8.5 % (0.0-10.0); %Neutrophils 71.5 % (42.0-75.0); Hemoglobin 10.6 g/dL (12.0-16.0); Mean Corpuscular HGB CONC 32.9 g/dL (32.0-36.0); Mean Corpuscular Hemoglobin 28.7 pg (27.0-31.0); Mean Corpuscular Volume 87.2 fL (78.0-98.0); Mean Platelet Volume 10.3 fL (7.4-10.4); Platelet Count 156 thou/uL (130-400); Red Blood Cell (RBC) Count 3.71 mill/uL (4.20-5.40); White Blood Cell (WBC) Count 8.4 thou/uL (4.8-10.8)
[2019-10-08 06:51] LABS: Anion Gap 11 mmol/L (10-20); BUN (Urea Nitrogen) 21 mg/dL (9.8-20.1); Calc. Creatinine Clearance 101 mL/min (70-130); Calcium 9.4 mg/dL (7.8-10.44); Carbon Dioxide 23 mmol/L (23-31); Chloride 106 mmol/L (98-107); Estimated GFR-MDRD 54; Glucose 191 mg/dL (83-110); Potassium 4.3 mmol/L (3.5-5.1); Sodium 136 mmol/L (136-145)
[2019-10-08] MEDS: Mometasone 200 MCG/Formoterol 5 MCG 120 PUFF INHALER INH SCH (07:41)
[2019-10-08] MEDS: Heparin 10,000 UNITS/ 10 ML VIAL SLOW IVP SCH (08:11)
--- NOTE | 2019-10-08 08:30 | PDOC.HOSPP ---
- Subjective Encounter Date: 10/08/19 Encounter Time: 11:00 Subjective: No complaints. Awaiting her transfer. - Objective Vital Signs & Weight: Vital Signs (12 hours) Temp Pulse Resp BP BP Pulse Ox 10/08/19 08:00 97.3 F L 80 15 174/79 H 95 10/08/19 07:43 95 10/08/19 07:41 91 16 95 10/08/19 03:09 99.2 F 85 18 157/77 H 95 10/08/19 00:33 73 Weight Weight 283 lb 9.6 oz Most Recent Monitor Data Heart Rate from ECG 76 NIBP 117/54 NIBP BP-Mean 75 Respiration from ECG 17 SpO2 96 I&O: 10/07/19 10/08/19 10/09/19 06:59 06:59 06:59 Intake Total 1260 970 Output Total 2200 600 Balance -940 370 Result Diagrams: 10/08/19 05:54 10/08/19 05:54 Additional Labs: Accuchecks 10/08/19 10/07/19 10/07/19 05:44 20:30 16:58 POC Glucose 215 H 220 H 209 H 10/07/19 11:17 POC Glucose 268 H Hospitalist ROS - Review of Systems Constitutional: denies: fever, chills Respiratory: denies: cough, shortness of breath Cardiovascular: denies: chest pain, palpitations Gastrointestinal: denies: nausea, vomiting, abdominal pain Genitourinary: denies: dysuria - Medication Medications: Active Medications Generic Name Dose Route Start Last Admin Trade Name Freq PRN Reason Stop Dose Admin Acetaminophen 1,000 mg 09/30/19 19:22 10/08/19 05:57 Tylenol PO 1,000 mg Q6H PRN Administration Mild Pain (1-3) Aspirin 81 mg 10/01/19 09:00 10/07/19 18:03 Ecotrin PO 81 mg DAILY [facility] Administration Clopidogrel Bisulfate 75 mg 10/04/19 09:00 10/07/19 18:03 Plavix PO 75 mg DAILY [facility] Administration Cyclosporine 0 ml 10/07/19 09:00 10/07/19 21:07 Restasis EA EYE 0.4 ml BID [facility] Administration Fluoxetine HCl 20 mg 09/30/19 21:00 10/07/19 21:07 Prozac PO 20 mg HS [facility] Administration Heparin Sodium (Porcine) 0 units 10/07/19 23:00 10/08/19 08:11 Heparin 1,000 Units/Ml (10 Ml) SLOW IVP 3.87 ml WILLCALL [facility] Administration Insulin Glargine 20 units/ 0.2 mls @ 0 mls/hr 10/06/19 21:00 10/07/19 21:09 Miscellaneous Medication SC 0.2 mls HS [facility] Administration Heparin Sodium/Dextrose 500 mls @ 0 mls/hr 10/07/19 23:00 10/07/19 23:42 Heparin 25,000 Units/D5w IV 500 mls INF [facility] Administration Protocol As Directed Insulin Human Lispro 0 units 09/30/19 19:22 10/07/19 21:09 Humalog SC 2 unit .BEDTIME SLIDING SC PRN Administration Bedtime Correctional Scale Insulin Human Lispro 0 units 10/05/19 16:43 10/08/19 05:58 Humalog SC 6 unit .AGGRESSIVE SLIDING PRN Administration AGGRESSIVE SLIDING SCALE Protocol Isosorbide Mononitrate 60 mg 10/04/19 09:00 10/07/19 06:09 Imdur PO 60 mg DAILY [facility] Administration Miscellaneous Medication 2 gm 10/02/19 21:00 10/07/19 21:08 Vascepa PO 2 gm BID [facility] Administration Mometasone Furoate/Formoterol Fumar 2 puff 10/01/19 06:30 10/08/19 07:41 Dulera 200 Mcg/5 Mcg Inhaler INH 2 puff BID-RT [facility] Administration Pantoprazole Sodium 40 mg 09/30/19 21:00 10/07/19 21:07 Protonix PO 40 mg HS [facility] Administration Pregabalin 100 mg 09/30/19 21:00 10/07/19 21:08 Lyrica PO 100 mg BID [facility] Administration Ranolazine 500 mg 10/04/19 21:00 10/07/19 21:07 Ranexa PO 500 mg BID [facility] Administration Rosuvastatin Calcium 20 mg 10/01/19 21:00 10/07/19 21:07 Crestor PO 20 mg HS [facility] Administration Sodium Chloride 10 ml 10/04/19 21:00 10/07/19 21:32 Flush - Normal Saline IVF Not Given Q12HR [facility] Sodium Chloride 10 ml 10/04/19 10:09 10/07/19 23:39 Flush - Normal Saline IVF 10 ml PRN PRN Administration Saline Flush Temazepam 15 mg 09/30/19 19:22 10/07/19 00:11 Restoril PO 15 mg HSPRN PRN Administration Insomnia - Exam General Appearance: NAD, awake alert ENT: moist mucosa Heart: RRR, no murmur, no gallops, no rubs Respiratory: CTAB, no wheezes, no rales, no ronchi Gastrointestinal: soft, non-tender, non-distended, normal bowel sounds Extremities - other findings: trace BLE edema Psychiatric: normal affect, normal behavior, A&O x 3 Hosp A/P (1) CAD (coronary artery disease) Code(s): I25.10 - ATHSCL HEART DISEASE OF [place] CORONARY ARTERY W/O ANG PCTRS Status: Acute Plan: has dissected RCA (2) Acute kidney injury superimposed on CKD Code(s): N17.9 - ACUTE KIDNEY FAILURE, UNSPECIFIED; N18.9 - CHRONIC KIDNEY DISEASE, UNSPECIFIED Status: Acute (3) Complete heart block Code(s): I44.2 - ATRIOVENTRICULAR BLOCK, COMPLETE Status: Resolved (4) Acute combined systolic (congestive) and diastolic (congestive) heart failure Code(s): I50.41 - ACUTE COMBINED SYSTOLIC AND DIASTOLIC (CONGESTIVE) HRT FAIL Status: Acute (5) Type 2 myocardial infarction Code(s): I21.A1 - MYOCARDIAL INFARCTION TYPE 2 Status: Acute (6) DM II (diabetes mellitus, type II), controlled Code(s): E11.9 - TYPE 2 DIABETES MELLITUS WITHOUT COMPLICATIONS Status: Chronic (7) HTN (hypertension) Code(s): I10 - ESSENTIAL (PRIMARY) HYPERTENSION Status: Chronic Qualifiers: Hypertension type: essential hypertension Qualified Code(s): I10 - Essential (primary) hypertension - Plan PT/OT, oncology social worker, out of bed/ambulate, DVT proph w/SCDs Stable currently Creatinine markedly improved with IV fluids, stopped to prevent volume overload , creatinine stable and ok for cath Continue ASA/Plavix Continue Imdur Hold all nephrotoxic meds and limit contrast exposure OOB/ambulate DM education Cath with dissected RCA, plan for transfer per Dr. Violet GONZALES lab: BMP
[2019-10-08] MEDS: cycloSPORINE 0.05% Ophthalmic Droperette EA EYE SCH (08:58)
[2019-10-08] MEDS: Clopidogrel Bisulfate 75 MG TAB PO SCH (08:59)
[2019-10-08] MEDS: Pregabalin 50 MG CAP PO SCH (08:59)
[2019-10-08] MEDS: Aspirin 81 mg Enteric Coated Tablet PO SCH (09:01)
[2019-10-08] MEDS: Icosapent Ethyl 1 GM CAPSULE PO SCH (09:05)
[2019-10-08 12:10] VITALS: BP 194/91; TEMP 97.4
--- NOTE | 2019-10-09 00:48 | DIS ---
DATE OF ADMISSION: 09/30/2019 DATE OF DISCHARGE: 10/08/2019 PRIMARY CARE PHYSICIAN: Helen Cardenas. REASON FOR ADMISSION: Shortness of breath with new onset congestive heart failure. DIAGNOSES AT DISCHARGE: 1. Acute coronary artery disease with acutely dissected right coronary artery. 2. Acute combined systolic and diastolic congestive heart failure. 3. Complete heart block, resolved. 4. Acute on chronic kidney disease. 5. Type 2 myocardial infarction. 6. Diabetes mellitus, type 2. 7. Hypertension. PROCEDURES PERFORMED: 1. Cardiac catheterization showing disease in the left anterior descending coronary artery at 80% mid artery, left circumflex coronary artery 95% at the OM1 and disease of the right coronary artery 30% proximal and mid. 2. Repeat cardiac catheterization with one injection of the RCA only, this showed that the vessel was dissected and now subtotal in the proximal mid section. 3. Echocardiogram showing ejection fraction of 45% to 50%, impaired relaxation. CONSULTATIONS: 1. Cardiology, Dr. Lazo. 2. Pulmonology, Dr. Howard. 3. Cardiovascular Surgery, Dr. Payne. SUMMARY OF HOSPITAL COURSE: This is a 74-year-old white female with obesity and history of diabetes and high blood pressure, who came in with progressive swelling of her lower extremities and shortness of breath. She was diagnosed with congestive heart failure. Cardiology was consulted. She also had an elevated troponin, concerned for type 2 myocardial infarction. The patient was taken back to cardiac catheterization with above results. After cardiac catheterization, the patient had a complete heart block with heart rate down into the 20s. She had atropine and was resuscitated and had resolution of her heart block and was recovered in the ICU. CV Surgery was consulted and determined that she was not a candidate for bypass. There was concern about her right coronary artery and so, she was taken back to cath again and it was found that she did have dissection of her right coronary artery. Dr. Lazo then set up transfer for her to a specialist at [facility] in [place] for higher level of care. The patient was feeling better and was without significant symptoms on discharge. Job ID: [id number] [facility]
== END 2019-10-08 12:20 | disposition short-term general hospital (02) | DRG 280 ==
LOC: ERS 12:21 → 2NO 14:02 → OBSVTOIN 19:22 → CCU 10-02 09:56 → 2NO 10-03 12:08
PROVIDERS: ADMIT Emergency Medicine; ATTEND Emergency Medicine
PROC: 4A023N7 Measurement of Cardiac Sampling and Pressure, Left Heart, Percutaneous Approach (ICD-10-PCS; principal; 2019-10-02)
PROC: B2111ZZ Fluoroscopy of Multiple Coronary Arteries using Low Osmolar Contrast (ICD-10-PCS; 2019-10-02)
PROC: B2111ZZ Fluoroscopy of Multiple Coronary Arteries using Low Osmolar Contrast (ICD-10-PCS; 2019-10-07)
PROC: 4A023N7 Measurement of Cardiac Sampling and Pressure, Left Heart, Percutaneous Approach (ICD-10-PCS; 2019-10-07)
DX: I13.0 Hypertensive heart and chronic kidney disease with heart failure and stage 1 through stage 4 chronic kidney disease, or unspecified chronic kidney disease (principal); I21.A1 Myocardial infarction type 2; I50.41 Acute combined systolic (congestive) and diastolic (congestive) heart failure; I25.42 Coronary artery dissection; Z66 Do not resuscitate; Z68.42 Body mass index [BMI] 45.0-49.9, adult; I44.2 Atrioventricular block, complete; N17.9 Acute kidney failure, unspecified; I25.10 Atherosclerotic heart disease of native coronary artery without angina pectoris; E11.9 Type 2 diabetes mellitus without complications; E66.01 Morbid (severe) obesity due to excess calories; J45.909 Unspecified asthma, uncomplicated; R00.1 Bradycardia, unspecified; F32.9 Major depressive disorder, single episode, unspecified; E78.00 Pure hypercholesterolemia, unspecified; G89.29 Other chronic pain; G47.30 Sleep apnea, unspecified; M19.90 Unspecified osteoarthritis, unspecified site; I25.5 Ischemic cardiomyopathy; Z90.49 Acquired absence of other specified parts of digestive tract; Z91.19 Patient's noncompliance with other medical treatment and regimen; Z90.710 Acquired absence of both cervix and uterus; Z90.89 Acquired absence of other organs; Z98.51 Tubal ligation status
CPT/HCPCS: 36415; 36416; 80048; 80061; 82553; 83036; 84443; 85007; 85025; 85027; 85730; 87086; 93005; 93010; 93306; 93454; 93458; 93567; 93798; 94760; 96374; 99152; 99153; G0378; J0461; J1644; J1650; J1815; J1940; J2250; Q9967

== ENCOUNTER 2019-12-12 09:40 | Outpatient (CLI) | payer MEDICARE, OTHER ==
--- NOTE | 2019-12-12 10:02 | RAD ---
EXAM: Two views chest PROVIDED CLINICAL HISTORY: Dyspnea. COMPARISON: 01/30/2018 FINDINGS: Cardiac silhouette is mildly enlarged. Pulmonary vasculature is at the upper limits of normal. There is slight blunting of each lateral costophrenic angle greater on the left suggesting minimal bilateral pleural effusions larger in size on the left with atelectasis at the left lung base. Metall ic density overlies left lung base which may represent a loop recorder device. Clinical correlation is recommended. -Vascular calcifications are seen in thoracic aorta. No other interval change IMPRESSION: 1. Cardiomegaly with borderline increased pulmonary vasculature. 2. Minimal bilateral pleural effusions larger in size on the left. 3. Metallic density overlying left lung base which may represent loop recording device. Clinical rickey elation recommended..
== END 2019-12-12 09:41 | disposition home or self-care (01) ==
LOC: BICRAD 09:40
PROVIDERS: ATTEND Internal Medicine Critical Care Medicine
DX: R06.00 Dyspnea, unspecified (principal); J90 Pleural effusion, not elsewhere classified; J98.4 Other disorders of lung; I51.7 Cardiomegaly
CPT/HCPCS: 71046

== ENCOUNTER 2020-09-17 17:12 | Inpatient (IN) | payer MEDICARE ==
[~2020-09-17 17:12] MED LIST changes: -Atropine Sulfate 1 mg/10 ml Syringe ONE; +Heparin 1,000 UNITS/ML VIAL ONE
[2020-09-17 18:23] LABS: #Lymphocytes 0.9 thou/uL (1.20-3.40); #Monocytes 0.9 thou/uL (0.11-0.59); #Neutrophils 6.3 thou/uL (1.40-6.50); %Basophils 0.3 % (0.0-1.0); %Eosinophils 0.2 % (0.0-10.0); %Lymphocytes 10.9 % (21.0-51.0); %Neutrophils 77.7 % (42.0-75.0); Hemoglobin 10.6 g/dL (12.0-16.0); Mean Corpuscular HGB CONC 31.4 g/dL (32.0-36.0); Mean Corpuscular Hemoglobin 25.7 pg (27.0-31.0); Mean Corpuscular Volume 81.9 fL (78.0-98.0); Mean Platelet Volume 9.8 fL (7.4-10.4); Platelet Count 239 thou/uL (130-400); RBC Distribution Width 17.7 % (11.5-14.5); Red Blood Cell (RBC) Count 4.13 mill/uL (4.20-5.40); White Blood Cell (WBC) Count 8.1 thou/uL (4.8-10.8)
[2020-09-17 18:48] LABS: AST (SGOT) 385 U/L (5-34); Albumin 3.3 g/dL (3.4-4.8); Alkaline Phosphatase 270 U/L (40-110); Anion Gap 16 mmol/L (10-20); BUN (Urea Nitrogen) 65 mg/dL (9.8-20.1); Bilirubin, Total 0.9 mg/dL (0.2-1.2); Calc. Creatinine Clearance 0 mL/min (70-130); Calcium 9.4 mg/dL (7.8-10.44); Carbon Dioxide 24 mmol/L (23-31); Chloride 99 mmol/L (98-107); Globulin 3.6 g/dL (2.4-3.5); Glucose 172 mg/dL (83-110); Lipase 29 U/L (8-78); Potassium 5.3 mmol/L (3.5-5.1); Protein, Total 6.9 g/dL (5.8-8.1); Sodium 134 mmol/L (136-145)
[2020-09-17 19:26] LABS: ALT (SGPT) 294 U/L (8-55); CKMB 1.9 ng/mL (0-6.6)
[2020-09-17] MEDS ORDERED: Fentanyl 100 MCG/2 ML VIAL ONE (20:32)
[2020-09-17 21:03] LABS: Troponin I 0.609 ng/mL (< 0.028)
[2020-09-17] MEDS ORDERED: Ondansetron PF 4 MG/2 ML Vial IVP PRN (21:06)
[2020-09-17] MEDS ORDERED: Acetaminophen 325 MG TAB PO PRN (21:06)
[2020-09-17] MEDS ORDERED: Ondansetron ODT 4 MG TAB PO PRN (21:06)
[2020-09-17] MEDS ORDERED: Furosemide 100 MG/10 ML VIAL SLOW IVP SCH (21:15)
[2020-09-17] MEDS ORDERED: Dextrose 50% Abboject 50 ML SYRINGE SLOW IVP PRN (21:16)
[2020-09-17] MEDS ORDERED: Dextrose 5% in Water 1,000 ML IV PRN (21:16)
[2020-09-17] MEDS ORDERED: Furosemide 100 MG/10 ML VIAL ONE (21:24)
[2020-09-17] MEDS ORDERED: cefTRIAXone\\ROCEPHIN 2 GM VIAL ONE (21:45)
[2020-09-18] MEDS ORDERED: Enoxaparin Sodium 100 MG/ML SYRINGE SC SCH (00:30)
[2020-09-18 01:52] LABS: #Lymphocytes 1.1 thou/uL (1.20-3.40); #Monocytes 1.4 thou/uL (0.11-0.59); %Basophils 0.3 % (0.0-1.0); %Eosinophils 0.4 % (0.0-10.0); %Monocytes 12.9 % (0.0-10.0); %Neutrophils 76.4 % (42.0-75.0); Hemoglobin 10.2 g/dL (12.0-16.0); Mean Corpuscular HGB CONC 31.4 g/dL (32.0-36.0); Mean Corpuscular Volume 82.7 fL (78.0-98.0); Mean Platelet Volume 9.9 fL (7.4-10.4); Platelet Count 217 thou/uL (130-400); RBC Distribution Width 17.5 % (11.5-14.5); Red Blood Cell (RBC) Count 3.93 mill/uL (4.20-5.40); White Blood Cell (WBC) Count 10.5 thou/uL (4.8-10.8)
[2020-09-18] MEDS ORDERED: cefTRIAXone\\ROCEPHIN 1 GM in Sodium Chloride 0.9% 100 ML IVPB SCH (02:00)
[2020-09-18 02:04] LABS: Anion Gap 16 mmol/L (10-20); BUN (Urea Nitrogen) 65 mg/dL (9.8-20.1); Calc. Creatinine Clearance 41 mL/min (70-130); Calcium 9.5 mg/dL (7.8-10.44); Carbon Dioxide 24 mmol/L (23-31); Chloride 99 mmol/L (98-107); Glucose 114 mg/dL (83-110); Potassium 4.9 mmol/L (3.5-5.1); Sodium 134 mmol/L (136-145)
[2020-09-18] MEDS: HYDROcodone/Acetaminophen 5/325 mg Tablet PO PRN ×2 (02:08→09:31)
[2020-09-18 04:29] LABS: Bilirubin Negative (Negative); Blood, Urine Trace (Negative); Glucose, Urine (Dipstick) Negative (Negative); Ketone, Urine Negative (Negative); Leukocyte Trace (Negative); Nitrite Negative (Negative); Protein, Urine (Dipstick) Trace mg/dL (Neg-Trace); Urobilinogen 0.2 mg/dL (Less than 2); pH, Urine 5.5 (5.0-9.0)
[2020-09-18 04:31] LABS: Squamous Epithelial 0-3 HPF (0-3); WBC/HPF 21-50 HPF (0-3)
[2020-09-18 04:32] LABS: Bacteria/HPF 1+ HPF (None Seen); Clarity Clear (Clear); Specific Gravity, Urine 1.017 (1.002-1.036)
[2020-09-18 04:33] LABS: Urine Culture Reflex No No
[2020-09-18] MEDS ORDERED: Furosemide 100 MG/10 ML VIAL SLOW IVP SCH ×3 (05:00→09:00)
[2020-09-18] MEDS: Mometasone 200 MCG/Formoterol 5 MCG 120 PUFF INHALER INH SCH ×2 (06:57→18:10)
[2020-09-18] MEDS ORDERED: Spironolactone 25 MG TAB PO SCH (08:30)
[2020-09-18] MEDS ORDERED: Aspirin 325 MG TAB PO SCH (09:00)
[2020-09-18] MEDS ORDERED: CEFAZOLIN 1 GM in Sodium Chloride 0.9% 100 ML IVPB SCH (09:00)
[2020-09-18] MEDS: Prasugrel 10 MG TAB PO SCH (09:27)
[2020-09-18] MEDS: Icosapent Ethyl 1 GM CAPSULE PO SCH ×2 (09:28→21:42)
[2020-09-18] MEDS: cycloSPORINE 0.05% Ophthalmic Droperette EA EYE SCH (09:28)
[2020-09-18] MEDS: ceFAZolin 1 GM/D5W 1 GM in Premix Bag 1 BAG IVPB SCH ×2 (09:29→18:17)
[2020-09-18 11:10] VITALS: BMI 40.8
[2020-09-18] MEDS: HumaLOG 300 UNITS/3 ML VIAL SC PRN ×2 (12:51→18:17)
[2020-09-18] MEDS: Furosemide 100 MG/10 ML VIAL SLOW IVP SCH (14:38)
[2020-09-18] MEDS: Ferrous Sulfate 325 MG TAB PO SCH (18:17)
[2020-09-18 18:51] LABS: SARS-CoV-2 PCR by NAA Not Detected (NotDetected)
[2020-09-19] MEDS: ceFAZolin 1 GM/D5W 1 GM in Premix Bag 1 BAG IVPB SCH ×3 (01:30→17:21)
[2020-09-19 05:36] LABS: Mean Corpuscular HGB CONC 30.7 g/dL (32.0-36.0); Mean Corpuscular Hemoglobin 25.4 pg (27.0-31.0); Mean Corpuscular Volume 82.6 fL (78.0-98.0); Mean Platelet Volume 10.4 fL (7.4-10.4); Platelet Count 179 thou/uL (130-400); RBC Distribution Width 17.5 % (11.5-14.5); Red Blood Cell (RBC) Count 3.95 mill/uL (4.20-5.40); White Blood Cell (WBC) Count 14.2 thou/uL (4.8-10.8)
[2020-09-19 05:51] LABS: Band 5 % (5-11); Lymphocytes 3 % (21-51); MDiff Complete? YES; Monocytes 8 % (0-10); Neutrophil 84 % (42-75); Platelet Morphology Comment Appears Adequate
[2020-09-19 05:55] LABS: ALT (SGPT) 483 U/L (8-55); AST (SGOT) 368 U/L (5-34); Alkaline Phosphatase 264 U/L (40-110); Anion Gap 15 mmol/L (10-20); BUN (Urea Nitrogen) 70 mg/dL (9.8-20.1); Bilirubin, Total 0.9 mg/dL (0.2-1.2); Calc. Creatinine Clearance 40 mL/min (70-130); Calcium 9.2 mg/dL (7.8-10.44); Carbon Dioxide 26 mmol/L (23-31); Chloride 99 mmol/L (98-107); Globulin 3.5 g/dL (2.4-3.5); Glucose 169 mg/dL (83-110); Magnesium 2.2 mg/dL (1.6-2.6); Potassium 4.5 mmol/L (3.5-5.1); Protein, Total 6.5 g/dL (5.8-8.1); Sodium 135 mmol/L (136-145)
[2020-09-19] MEDS: HumaLOG 300 UNITS/3 ML VIAL SC PRN ×3 (06:16→17:21)
[2020-09-19] MEDS: Furosemide 100 MG/10 ML VIAL SLOW IVP SCH ×2 (06:17→14:44)
[2020-09-19] MEDS: Mometasone 200 MCG/Formoterol 5 MCG 120 PUFF INHALER INH SCH ×2 (06:59→17:59)
[2020-09-19] MEDS: Icosapent Ethyl 1 GM CAPSULE PO SCH ×2 (08:28→21:30)
[2020-09-19] MEDS: Prasugrel 10 MG TAB PO SCH (08:29)
[2020-09-19] MEDS: cycloSPORINE 0.05% Ophthalmic Droperette EA EYE SCH (08:29)
[2020-09-19] MEDS: Aspirin Chewable 81 MG TAB PO SCH (08:29)
[2020-09-19] MEDS: Ferrous Sulfate 325 MG TAB PO SCH ×2 (08:30→17:20)
[2020-09-19] MEDS: Spironolactone 25 MG TAB PO SCH (08:30)
[2020-09-19] MEDS ORDERED: Enoxaparin Sodium 40 MG/0.4 ML SYRINGE SC SCH (09:00)
[2020-09-19] MEDS ORDERED: Albumin 25% 25 GM/100 ML BOT IVPB SCH ×2 (13:56→18:30)
[2020-09-19 17:26] LABS: Creatinine, Urine 58.28 mg/dL (47-110)
[2020-09-19] MEDS ORDERED: Metolazone 2.5 MG TAB PO SCH (18:00)
[2020-09-19] MEDS: cefTRIAXone\\ROCEPHIN 2 GM in Sodium Chloride 0.9% 100 ML IVPB SCH (21:30)
[2020-09-20 05:10] LABS: Band 2 % (5-11); Hemoglobin 9.4 g/dL (12.0-16.0); Lymphocytes 5 % (21-51); MDiff Complete? YES; Mean Corpuscular HGB CONC 31.2 g/dL (32.0-36.0); Mean Corpuscular Hemoglobin 25.8 pg (27.0-31.0); Mean Corpuscular Volume 82.8 fL (78.0-98.0); Mean Platelet Volume 11.1 fL (7.4-10.4); Monocytes 7 % (0-10); Neutrophil 86 % (42-75); Platelet Count 137 thou/uL (130-400); Platelet Morphology Comment Appears Adequate; RBC Distribution Width 17.6 % (11.5-14.5); Red Blood Cell (RBC) Count 3.64 mill/uL (4.20-5.40); White Blood Cell (WBC) Count 14.8 thou/uL (4.8-10.8)
[2020-09-20 05:18] LABS: ALT (SGPT) 226 U/L (8-55); AST (SGOT) 159 U/L (5-34); Alkaline Phosphatase 232 U/L (40-110); Anion Gap 13 mmol/L (10-20); BUN (Urea Nitrogen) 67 mg/dL (9.8-20.1); Calc. Creatinine Clearance 49 mL/min (70-130); Calcium 9.3 mg/dL (7.8-10.44); Carbon Dioxide 28 mmol/L (23-31); Chloride 99 mmol/L (98-107); Globulin 3.5 g/dL (2.4-3.5); Glucose 190 mg/dL (83-110); Iron 15 ug/dL (50-170); Iron Binding Capacity, Total 263 mcg/dL (265-497); Potassium 3.8 mmol/L (3.5-5.1); Protein, Total 6.5 g/dL (5.8-8.1); Sodium 136 mmol/L (136-145)
[2020-09-20] MEDS: Furosemide 100 MG/10 ML VIAL SLOW IVP SCH ×2 (05:48→14:50)
[2020-09-20] MEDS: HumaLOG 300 UNITS/3 ML VIAL SC PRN ×4 (06:12→20:53)
[2020-09-20] MEDS: Mometasone 200 MCG/Formoterol 5 MCG 120 PUFF INHALER INH SCH ×2 (07:17→18:41)
[2020-09-20] MEDS: Enoxaparin Sodium 30 MG/0.3 ML SYRINGE SC SCH (09:22)
[2020-09-20] MEDS: Prasugrel 10 MG TAB PO SCH (09:22)
[2020-09-20] MEDS: Aspirin Chewable 81 MG TAB PO SCH (09:22)
[2020-09-20] MEDS: Ferrous Sulfate 325 MG TAB PO SCH ×2 (09:23→17:08)
[2020-09-20] MEDS: cycloSPORINE 0.05% Ophthalmic Droperette EA EYE SCH (09:23)
[2020-09-20] MEDS: Spironolactone 25 MG TAB PO SCH (09:23)
[2020-09-20] MEDS: Icosapent Ethyl 1 GM CAPSULE PO SCH ×2 (09:24→20:53)
[2020-09-20] MEDS ORDERED: Potassium Chloride 20 MEQ TAB PO SCH (10:30)
[2020-09-20] MEDS ORDERED: Metolazone 2.5 MG TAB PO SCH (12:00)
[2020-09-20] MEDS: cefTRIAXone\\ROCEPHIN 2 GM in Sodium Chloride 0.9% 100 ML IVPB SCH (20:52)
[2020-09-21 05:08] LABS: Hemoglobin 9.4 g/dL (12.0-16.0); Mean Corpuscular HGB CONC 30.5 g/dL (32.0-36.0); Mean Corpuscular Hemoglobin 25.5 pg (27.0-31.0); Mean Corpuscular Volume 83.6 fL (78.0-98.0); RBC Distribution Width 17.6 % (11.5-14.5); Red Blood Cell (RBC) Count 3.69 mill/uL (4.20-5.40); White Blood Cell (WBC) Count 13.3 thou/uL (4.8-10.8)
[2020-09-21 05:23] LABS: Lymphocytes 4 % (21-51); MDiff Complete? YES; Mean Platelet Volume 10.9 fL (7.4-10.4); Metamyelocyte 1 % (0-0); Monocytes 4 % (0-10); Neutrophil 91 % (42-75); Platelet Count 114 thou/uL (130-400); Platelet Morphology Comment Appears Decreased
[2020-09-21 05:29] LABS: ALT (SGPT) 118 U/L (8-55); AST (SGOT) 69 U/L (5-34); Albumin 2.9 g/dL (3.4-4.8); Alkaline Phosphatase 244 U/L (40-110); Anion Gap 12 mmol/L (10-20); BUN (Urea Nitrogen) 67 mg/dL (9.8-20.1); Calc. Creatinine Clearance 58 mL/min (70-130); Calcium 9.4 mg/dL (7.8-10.44); Carbon Dioxide 29 mmol/L (23-31); Chloride 100 mmol/L (98-107); Globulin 3.6 g/dL (2.4-3.5); Glucose 196 mg/dL (83-110); Potassium 3.9 mmol/L (3.5-5.1); Protein, Total 6.5 g/dL (5.8-8.1); Sodium 137 mmol/L (136-145)
[2020-09-21] MEDS: Furosemide 100 MG/10 ML VIAL SLOW IVP SCH ×2 (06:15→14:42)
[2020-09-21] MEDS: HumaLOG 300 UNITS/3 ML VIAL SC PRN ×3 (06:31→17:58)
[2020-09-21] MEDS: Mometasone 200 MCG/Formoterol 5 MCG 120 PUFF INHALER INH SCH ×2 (08:33→18:38)
[2020-09-21] MEDS: Ferrous Sulfate 325 MG TAB PO SCH ×2 (08:44→18:33)
[2020-09-21] MEDS: cycloSPORINE 0.05% Ophthalmic Droperette EA EYE SCH (08:45)
[2020-09-21] MEDS: Spironolactone 25 MG TAB PO SCH (08:45)
[2020-09-21] MEDS: Aspirin Chewable 81 MG TAB PO SCH (08:45)
[2020-09-21] MEDS: Prasugrel 10 MG TAB PO SCH (08:45)
[2020-09-21] MEDS: Enoxaparin Sodium 30 MG/0.3 ML SYRINGE SC SCH (08:46)
[2020-09-21] MEDS: Icosapent Ethyl 1 GM CAPSULE PO SCH ×2 (08:46→20:13)
[2020-09-21] MEDS ORDERED: Dapagliflozin Propanediol 5 MG TAB PO SCH (09:00)
[2020-09-21] MEDS ORDERED: Empagliflozin 25 MG TAB PO SCH (10:45)
[2020-09-21] MEDS: cefTRIAXone\\ROCEPHIN 2 GM in Sodium Chloride 0.9% 100 ML IVPB SCH (20:13)
[2020-09-21] MEDS: Rosuvastatin 20 MG TAB PO SCH (20:13)
[2020-09-22 05:03] LABS: #Lymphocytes 0.4 thou/uL (1.20-3.40); #Monocytes 1.1 thou/uL (0.11-0.59); #Neutrophils 8.9 thou/uL (1.40-6.50); %Basophils 0.1 % (0.0-1.0); %Eosinophils 0.3 % (0.0-10.0); %Monocytes 10.3 % (0.0-10.0); %Neutrophils 85.3 % (42.0-75.0); Hemoglobin 9.7 g/dL (12.0-16.0); Mean Corpuscular HGB CONC 31.3 g/dL (32.0-36.0); Mean Corpuscular Hemoglobin 26.1 pg (27.0-31.0); Mean Corpuscular Volume 83.5 fL (78.0-98.0); Mean Platelet Volume 11.3 fL (7.4-10.4); Platelet Count 98 thou/uL (130-400); RBC Distribution Width 17.8 % (11.5-14.5); Red Blood Cell (RBC) Count 3.72 mill/uL (4.20-5.40); White Blood Cell (WBC) Count 10.4 thou/uL (4.8-10.8)
[2020-09-22 05:21] LABS: ALT (SGPT) 69 U/L (8-55); AST (SGOT) 42 U/L (5-34); Albumin 2.4 g/dL (3.4-4.8); Alkaline Phosphatase 264 U/L (40-110); Anion Gap 12 mmol/L (10-20); BUN (Urea Nitrogen) 70 mg/dL (9.8-20.1); Bilirubin, Total 0.9 mg/dL (0.2-1.2); Calc. Creatinine Clearance 62 mL/min (70-130); Calcium 9.1 mg/dL (7.8-10.44); Carbon Dioxide 31 mmol/L (23-31); Chloride 101 mmol/L (98-107); Globulin 3.3 g/dL (2.4-3.5); Glucose 213 mg/dL (83-110); Potassium 3.8 mmol/L (3.5-5.1); Protein, Total 5.7 g/dL (5.8-8.1); Sodium 140 mmol/L (136-145)
[2020-09-22] MEDS: Furosemide 100 MG/10 ML VIAL SLOW IVP SCH ×2 (05:55→15:47)
[2020-09-22] MEDS: HumaLOG 300 UNITS/3 ML VIAL SC PRN ×4 (06:22→21:07)
[2020-09-22] MEDS: Mometasone 200 MCG/Formoterol 5 MCG 120 PUFF INHALER INH SCH ×2 (07:35→18:18)
[2020-09-22] MEDS: Empagliflozin 25 MG TAB PO SCH (09:54)
[2020-09-22] MEDS: Aspirin Chewable 81 MG TAB PO SCH (09:55)
[2020-09-22] MEDS: Prasugrel 10 MG TAB PO SCH (09:55)
[2020-09-22] MEDS: Ferrous Sulfate 325 MG TAB PO SCH ×2 (09:55→17:11)
[2020-09-22] MEDS: Icosapent Ethyl 1 GM CAPSULE PO SCH ×2 (09:57→21:03)
[2020-09-22] MEDS: cycloSPORINE 0.05% Ophthalmic Droperette EA EYE SCH (09:57)
[2020-09-22] MEDS: Enoxaparin Sodium 30 MG/0.3 ML SYRINGE SC SCH (09:57)
[2020-09-22] MEDS: Spironolactone 25 MG TAB PO SCH (10:31)
[2020-09-22] MEDS ORDERED: Milrinone Lactate/D5W 20 MG in Premix Bag 1 BAG IV SCH ×2 (16:30→18:15)
[2020-09-22] MEDS: Rosuvastatin 20 MG TAB PO SCH (21:05)
[2020-09-22] MEDS ORDERED: cefTRIAXone\\ROCEPHIN 2 GM VIAL ONE (21:11)
[2020-09-22] MEDS: cefTRIAXone\\ROCEPHIN 2 GM in Sodium Chloride 0.9% 100 ML IVPB SCH (21:17)
[2020-09-23 04:54] LABS: ALT (SGPT) 50 U/L (8-55); AST (SGOT) 39 U/L (5-34); Albumin 2.2 g/dL (3.4-4.8); Alkaline Phosphatase 289 U/L (40-110); Anion Gap 13 mmol/L (10-20); BUN (Urea Nitrogen) 67 mg/dL (9.8-20.1); Bilirubin, Total 0.8 mg/dL (0.2-1.2); Calc. Creatinine Clearance 62 mL/min (70-130); Calcium 8.8 mg/dL (7.8-10.44); Carbon Dioxide 28 mmol/L (23-31); Chloride 102 mmol/L (98-107); Globulin 3.2 g/dL (2.4-3.5); Glucose 237 mg/dL (83-110); Potassium 3.8 mmol/L (3.5-5.1); Protein, Total 5.4 g/dL (5.8-8.1); Sodium 139 mmol/L (136-145)
[2020-09-23] MEDS ORDERED: Furosemide 20 MG/2 ML VIAL SLOW IVP SCH (05:45)
[2020-09-23] MEDS: HumaLOG 300 UNITS/3 ML VIAL SC PRN ×3 (05:55→17:42)
[2020-09-23] MEDS ORDERED: Amiodarone 200 MG TAB PO SCH (08:00)
[2020-09-23] MEDS ORDERED: Potassium Chloride 20 MEQ TAB PO SCH (08:45)
[2020-09-23] MEDS ORDERED: Magnesium 2 GM/50 ML 2 GM in Premix Bag 1 BAG IVPB SCH (08:45)
[2020-09-23] MEDS ORDERED: Milrinone Lactate/D5W 20 MG in Premix Bag 1 BAG IV SCH (09:40)
[2020-09-23] MEDS: Ferrous Sulfate 325 MG TAB PO SCH ×2 (09:49→16:40)
[2020-09-23] MEDS: Aspirin Chewable 81 MG TAB PO SCH (09:53)
[2020-09-23] MEDS: Icosapent Ethyl 1 GM CAPSULE PO SCH ×2 (09:55→20:47)
[2020-09-23] MEDS: Prasugrel 10 MG TAB PO SCH (09:57)
[2020-09-23] MEDS: Enoxaparin Sodium 30 MG/0.3 ML SYRINGE SC SCH (10:00)
[2020-09-23] MEDS: Empagliflozin 25 MG TAB PO SCH (10:04)
[2020-09-23] MEDS: cycloSPORINE 0.05% Ophthalmic Droperette EA EYE SCH ×2 (10:08→10:33)
[2020-09-23] MEDS: Mometasone 200 MCG/Formoterol 5 MCG 120 PUFF INHALER INH SCH ×2 (10:25→18:35)
[2020-09-23] MEDS: Albumin 25% 25 GM/100 ML BOT IVPB SCH ×2 (11:45→22:50)
[2020-09-23] MEDS ORDERED: Furosemide 100 MG/10 ML VIAL SLOW IVP SCH ×2 (14:00→18:30)
[2020-09-23] MEDS: Amiodarone 200 MG TAB PO SCH ×2 (14:44→20:47)
[2020-09-23] MEDS: DOBUTamine 500 mg/250 ml 250 ML IVPB SCH (20:03)
[2020-09-23] MEDS: cefTRIAXone\\ROCEPHIN 2 GM in Sodium Chloride 0.9% 100 ML IVPB SCH (20:48)
[2020-09-23] MEDS: Rosuvastatin 20 MG TAB PO SCH (20:49)
[2020-09-24] MEDS: HumaLOG 300 UNITS/3 ML VIAL SC PRN ×4 (05:45→21:29)
[2020-09-24 06:25] LABS: Anion Gap 15 mmol/L (10-20); BUN (Urea Nitrogen) 65 mg/dL (9.8-20.1); Calc. Creatinine Clearance 64 mL/min (70-130); Calcium 9.1 mg/dL (7.8-10.44); Carbon Dioxide 30 mmol/L (23-31); Chloride 101 mmol/L (98-107); Glucose 264 mg/dL (83-110); Potassium 3.5 mmol/L (3.5-5.1); Sodium 142 mmol/L (136-145)
[2020-09-24] MEDS: Mometasone 200 MCG/Formoterol 5 MCG 120 PUFF INHALER INH SCH ×2 (07:10→19:19)
[2020-09-24] MEDS ORDERED: Potassium Chloride 20 MEQ TAB PO SCH (08:45)
[2020-09-24] MEDS: Enoxaparin Sodium 30 MG/0.3 ML SYRINGE SC SCH (09:04)
[2020-09-24] MEDS: cycloSPORINE 0.05% Ophthalmic Droperette EA EYE SCH (09:04)
[2020-09-24] MEDS: Aspirin Chewable 81 MG TAB PO SCH (09:05)
[2020-09-24] MEDS: Prasugrel 10 MG TAB PO SCH (09:05)
[2020-09-24] MEDS: Ferrous Sulfate 325 MG TAB PO SCH ×2 (09:06→16:09)
[2020-09-24] MEDS: Amiodarone 200 MG TAB PO SCH ×3 (09:06→21:28)
[2020-09-24] MEDS: Icosapent Ethyl 1 GM CAPSULE PO SCH ×2 (09:07→21:27)
[2020-09-24] MEDS: Empagliflozin 25 MG TAB PO SCH (09:07)
[2020-09-24] MEDS ORDERED: Furosemide 100 MG/10 ML VIAL SLOW IVP SCH (11:00)
[2020-09-24] MEDS: HYDROcodone/Acetaminophen 5/325 mg Tablet PO PRN (11:15)
[2020-09-24] MEDS: Albumin 25% 25 GM/100 ML BOT IVPB SCH (11:19)
[2020-09-24] MEDS: cefTRIAXone\\ROCEPHIN 2 GM in Sodium Chloride 0.9% 100 ML IVPB SCH (21:24)
[2020-09-24] MEDS: Rosuvastatin 20 MG TAB PO SCH (21:25)
[2020-09-24] MEDS: Potassium Chloride 20 MEQ TAB PO SCH (21:27)
[2020-09-25 06:07] LABS: Anion Gap 12 mmol/L (10-20); BUN (Urea Nitrogen) 55 mg/dL (9.8-20.1); Calc. Creatinine Clearance 69 mL/min (70-130); Calcium 9.4 mg/dL (7.8-10.44); Carbon Dioxide 32 mmol/L (23-31); Chloride 103 mmol/L (98-107); Glucose 232 mg/dL (83-110); Magnesium 2.4 mg/dL (1.6-2.6); Potassium 4.5 mmol/L (3.5-5.1); Sodium 142 mmol/L (136-145)
[2020-09-25] MEDS: HumaLOG 300 UNITS/3 ML VIAL SC PRN ×4 (06:07→22:05)
[2020-09-25] MEDS: Mometasone 200 MCG/Formoterol 5 MCG 120 PUFF INHALER INH SCH ×2 (07:10→18:44)
[2020-09-25] MEDS: Aspirin Chewable 81 MG TAB PO SCH ×3 (08:50→09:13)
[2020-09-25] MEDS: Amiodarone 200 MG TAB PO SCH ×3 (08:50→20:27)
[2020-09-25] MEDS: Ferrous Sulfate 325 MG TAB PO SCH ×2 (08:50→17:43)
[2020-09-25] MEDS: Enoxaparin Sodium 40 MG/0.4 ML SYRINGE SC SCH (08:51)
[2020-09-25] MEDS: Empagliflozin 25 MG TAB PO SCH (08:51)
[2020-09-25] MEDS: Icosapent Ethyl 1 GM CAPSULE PO SCH ×2 (08:51→20:31)
[2020-09-25] MEDS: Potassium Chloride 20 MEQ TAB PO SCH ×2 (08:52→09:00)
[2020-09-25] MEDS: Prasugrel 10 MG TAB PO SCH ×3 (08:58→09:13)
[2020-09-25] MEDS ORDERED: Furosemide 100 MG/10 ML VIAL SLOW IVP SCH (09:00)
[2020-09-25] MEDS ORDERED: Acetaminophen 500 MG TAB PO SCH (09:00)
[2020-09-25 10:24] LABS: Hemoglobin 9.3 g/dL (12.0-16.0); Mean Corpuscular HGB CONC 31.4 g/dL (32.0-36.0); Mean Corpuscular Volume 82.9 fL (78.0-98.0); Mean Platelet Volume 11.9 fL (7.4-10.4); Platelet Count 118 thou/uL (130-400); RBC Distribution Width 18.1 % (11.5-14.5); Red Blood Cell (RBC) Count 3.56 mill/uL (4.20-5.40); White Blood Cell (WBC) Count 9.2 thou/uL (4.8-10.8)
[2020-09-25] MEDS: cycloSPORINE 0.05% Ophthalmic Droperette EA EYE SCH (10:31)
[2020-09-25 10:45] LABS: #Eosinphils 0.2 thou/uL (0.0-0.7); #Lymphocytes 0.8 thou/uL (1.20-3.40); #Neutrophils 7.1 thou/uL (1.40-6.50); %Basophils 0.1 % (0.0-1.0); %Lymphocytes 9.2 % (21.0-51.0); %Monocytes 11.4 % (0.0-10.0); %Neutrophils 77.3 % (42.0-75.0); Anisocytosis SLIGHT = 6-15 cells (100X) (0-5/hpf); Hypochromia SLIGHT = 6-15 cells (100X) (0-5/hpf); MDiff Complete? YES; Platelet Morphology Comment Appears Decreased
[2020-09-25] MEDS: Furosemide 100 MG/10 ML VIAL SLOW IVP SCH (17:42)
[2020-09-25] MEDS: Rosuvastatin 20 MG TAB PO SCH (20:27)
[2020-09-25] MEDS ORDERED: Melatonin 3 MG TAB PO PRN (22:43)
[2020-09-25] MEDS ORDERED: FLUoxetine HCl 20 MG CAP PO SCH (23:00)
[2020-09-26 04:31] LABS: #Eosinphils 0.1 thou/uL (0.0-0.7); #Lymphocytes 0.7 thou/uL (1.20-3.40); #Monocytes 0.9 thou/uL (0.11-0.59); #Neutrophils 6.1 thou/uL (1.40-6.50); %Basophils 0.2 % (0.0-1.0); %Eosinophils 1.3 % (0.0-10.0); %Lymphocytes 9.1 % (21.0-51.0); %Neutrophils 78.4 % (42.0-75.0); Hemoglobin 8.6 g/dL (12.0-16.0); Mean Corpuscular HGB CONC 30.1 g/dL (32.0-36.0); Mean Platelet Volume 11.1 fL (7.4-10.4); Platelet Count 124 thou/uL (130-400); RBC Distribution Width 18.4 % (11.5-14.5); Red Blood Cell (RBC) Count 3.44 mill/uL (4.20-5.40); White Blood Cell (WBC) Count 7.7 thou/uL (4.8-10.8)
[2020-09-26 04:52] LABS: Anion Gap 12 mmol/L (10-20); BUN (Urea Nitrogen) 49 mg/dL (9.8-20.1); Calc. Creatinine Clearance 78 mL/min (70-130); Calcium 9.2 mg/dL (7.8-10.44); Carbon Dioxide 33 mmol/L (23-31); Chloride 104 mmol/L (98-107); Glucose 249 mg/dL (83-110); Magnesium 2.1 mg/dL (1.6-2.6); Potassium 4.2 mmol/L (3.5-5.1); Sodium 145 mmol/L (136-145)
[2020-09-26] MEDS: Furosemide 100 MG/10 ML VIAL SLOW IVP SCH ×2 (06:08→14:15)
[2020-09-26] MEDS: HumaLOG 300 UNITS/3 ML VIAL SC PRN ×2 (06:32→18:25)
[2020-09-26] MEDS ORDERED: AcetaZOLAMIDE 250 MG TAB PO SCH (06:45)
[2020-09-26] MEDS: Mometasone 200 MCG/Formoterol 5 MCG 120 PUFF INHALER INH SCH ×2 (08:33→19:02)
[2020-09-26] MEDS: Potassium Chloride 20 MEQ TAB PO SCH (08:53)
[2020-09-26] MEDS: Aspirin Chewable 81 MG TAB PO SCH (08:53)
[2020-09-26] MEDS: Ferrous Sulfate 325 MG TAB PO SCH ×2 (08:53→18:09)
[2020-09-26] MEDS: Amiodarone 200 MG TAB PO SCH ×3 (08:53→21:14)
[2020-09-26] MEDS: Magnesium Oxide 400 MG TAB PO SCH (08:53)
[2020-09-26] MEDS: Prasugrel 10 MG TAB PO SCH (08:54)
[2020-09-26] MEDS: Icosapent Ethyl 1 GM CAPSULE PO SCH ×2 (08:54→21:14)
[2020-09-26] MEDS: Enoxaparin Sodium 40 MG/0.4 ML SYRINGE SC SCH (08:54)
[2020-09-26] MEDS: Empagliflozin 25 MG TAB PO SCH (08:55)
[2020-09-26] MEDS: cycloSPORINE 0.05% Ophthalmic Droperette EA EYE SCH (08:56)
[2020-09-26] MEDS: Docusate 100 MG CAP PO PRN (10:01)
[2020-09-26] MEDS: DOBUTamine 500 mg/250 ml 250 ML IVPB SCH (11:57)
[2020-09-26] MEDS: Potassium Chloride 10 MEQ TAB PO SCH (18:09)
[2020-09-26] MEDS: FLUoxetine HCl 20 MG CAP PO SCH (21:14)
[2020-09-26] MEDS: Rosuvastatin 20 MG TAB PO SCH (21:14)
[2020-09-26] MEDS: HYDROcodone/Acetaminophen 5/325 mg Tablet PO PRN (21:17)
[2020-09-26] MEDS: NPH, Human Insulin Isophane 300 UNIT/3 ML VIAL SC SCH (21:53)
[2020-09-27] MEDS: HYDROcodone/Acetaminophen 5/325 mg Tablet PO PRN ×3 (01:52→16:31)
[2020-09-27 05:01] LABS: #Eosinphils 0.1 thou/uL (0.0-0.7); #Lymphocytes 0.9 thou/uL (1.20-3.40); #Monocytes 0.9 thou/uL (0.11-0.59); #Neutrophils 7.1 thou/uL (1.40-6.50); %Basophils 0.3 % (0.0-1.0); %Eosinophils 1.6 % (0.0-10.0); %Lymphocytes 9.8 % (21.0-51.0); %Monocytes 9.6 % (0.0-10.0); %Neutrophils 78.7 % (42.0-75.0); Hemoglobin 8.4 g/dL (12.0-16.0); Mean Corpuscular HGB CONC 31.2 g/dL (32.0-36.0); Mean Corpuscular Volume 83.3 fL (78.0-98.0); Mean Platelet Volume 11.2 fL (7.4-10.4); Platelet Count 155 thou/uL (130-400); RBC Distribution Width 18.5 % (11.5-14.5); Red Blood Cell (RBC) Count 3.21 mill/uL (4.20-5.40)
[2020-09-27 05:31] LABS: Anion Gap 14 mmol/L (10-20); BUN (Urea Nitrogen) 45 mg/dL (9.8-20.1); Calc. Creatinine Clearance 79 mL/min (70-130); Calcium 8.9 mg/dL (7.8-10.44); Carbon Dioxide 29 mmol/L (23-31); Chloride 104 mmol/L (98-107); Glucose 209 mg/dL (83-110); Magnesium 2.1 mg/dL (1.6-2.6); Potassium 4.3 mmol/L (3.5-5.1); Sodium 143 mmol/L (136-145)
[2020-09-27] MEDS: HumaLOG 300 UNITS/3 ML VIAL SC PRN ×3 (06:09→17:45)
[2020-09-27] MEDS: Furosemide 100 MG/10 ML VIAL SLOW IVP SCH ×2 (06:09→16:46)
[2020-09-27] MEDS: Aspirin Chewable 81 MG TAB PO SCH (08:32)
[2020-09-27] MEDS: Prasugrel 10 MG TAB PO SCH (08:32)
[2020-09-27] MEDS: Empagliflozin 25 MG TAB PO SCH (08:32)
[2020-09-27] MEDS: Icosapent Ethyl 1 GM CAPSULE PO SCH ×2 (08:32→21:22)
[2020-09-27] MEDS: Potassium Chloride 20 MEQ TAB PO SCH (08:32)
[2020-09-27] MEDS: Amiodarone 200 MG TAB PO SCH ×3 (08:33→21:23)
[2020-09-27] MEDS: AcetaZOLAMIDE 250 MG TAB PO SCH (08:33)
[2020-09-27] MEDS: Enoxaparin Sodium 40 MG/0.4 ML SYRINGE SC SCH (08:33)
[2020-09-27] MEDS: Ferrous Sulfate 325 MG TAB PO SCH ×2 (08:33→16:29)
[2020-09-27] MEDS: Magnesium Oxide 400 MG TAB PO SCH (08:33)
[2020-09-27] MEDS: NPH, Human Insulin Isophane 300 UNIT/3 ML VIAL SC SCH ×2 (08:34→21:23)
[2020-09-27] MEDS: cycloSPORINE 0.05% Ophthalmic Droperette EA EYE SCH (08:34)
[2020-09-27] MEDS: Docusate 100 MG CAP PO PRN (08:35)
[2020-09-27] MEDS: Carvedilol 6.25 MG TAB PO SCH ×2 (08:59→21:22)
[2020-09-27] MEDS: Mometasone 200 MCG/Formoterol 5 MCG 120 PUFF INHALER INH SCH ×2 (10:08→18:48)
[2020-09-27] MEDS: Potassium Chloride 10 MEQ TAB PO SCH (16:29)
[2020-09-27] MEDS: DOBUTamine 500 mg/250 ml 250 ML IVPB SCH (17:45)
[2020-09-27] MEDS: Rosuvastatin 20 MG TAB PO SCH (21:22)
[2020-09-27] MEDS: FLUoxetine HCl 20 MG CAP PO SCH (21:22)
[2020-09-28] MEDS: HYDROcodone/Acetaminophen 5/325 mg Tablet PO PRN (01:23)
[2020-09-28 04:58] LABS: #Eosinphils 0.2 thou/uL (0.0-0.7); #Lymphocytes 0.9 thou/uL (1.20-3.40); #Monocytes 0.9 thou/uL (0.11-0.59); #Neutrophils 8.4 thou/uL (1.40-6.50); %Eosinophils 1.6 % (0.0-10.0); %Lymphocytes 8.4 % (21.0-51.0); %Monocytes 8.8 % (0.0-10.0); %Neutrophils 81.2 % (42.0-75.0); Mean Corpuscular HGB CONC 30.5 g/dL (32.0-36.0); Mean Corpuscular Hemoglobin 25.7 pg (27.0-31.0); Mean Corpuscular Volume 84.4 fL (78.0-98.0); Platelet Count 173 thou/uL (130-400); RBC Distribution Width 18.7 % (11.5-14.5); Red Blood Cell (RBC) Count 3.48 mill/uL (4.20-5.40); White Blood Cell (WBC) Count 10.4 thou/uL (4.8-10.8)
[2020-09-28 05:35] LABS: Anion Gap 12 mmol/L (10-20); BUN (Urea Nitrogen) 41 mg/dL (9.8-20.1); Calc. Creatinine Clearance 82 mL/min (70-130); Calcium 8.9 mg/dL (7.8-10.44); Carbon Dioxide 30 mmol/L (23-31); Chloride 104 mmol/L (98-107); Glucose 166 mg/dL (83-110); Magnesium 2.1 mg/dL (1.6-2.6); Potassium 4.3 mmol/L (3.5-5.1); Sodium 142 mmol/L (136-145)
[2020-09-28] MEDS: Furosemide 100 MG/10 ML VIAL SLOW IVP SCH (06:40)
[2020-09-28] MEDS: HumaLOG 300 UNITS/3 ML VIAL SC PRN ×2 (06:44→11:20)
[2020-09-28] MEDS: Mometasone 200 MCG/Formoterol 5 MCG 120 PUFF INHALER INH SCH (07:12)
[2020-09-28] MEDS: NPH, Human Insulin Isophane 300 UNIT/3 ML VIAL SC SCH (10:05)
[2020-09-28] MEDS: Potassium Chloride 20 MEQ TAB PO SCH (10:06)
[2020-09-28] MEDS: Ferrous Sulfate 325 MG TAB PO SCH (10:06)
[2020-09-28] MEDS: Icosapent Ethyl 1 GM CAPSULE PO SCH (10:06)
[2020-09-28] MEDS: Prasugrel 10 MG TAB PO SCH (10:07)
[2020-09-28] MEDS: AcetaZOLAMIDE 250 MG TAB PO SCH (10:07)
[2020-09-28] MEDS: Aspirin Chewable 81 MG TAB PO SCH (10:07)
[2020-09-28] MEDS: Amiodarone 200 MG TAB PO SCH (10:07)
[2020-09-28] MEDS: Carvedilol 6.25 MG TAB PO SCH (10:07)
[2020-09-28] MEDS: Magnesium Oxide 400 MG TAB PO SCH (10:07)
[2020-09-28] MEDS: cycloSPORINE 0.05% Ophthalmic Droperette EA EYE SCH (10:08)
[2020-09-28] MEDS: Enoxaparin Sodium 40 MG/0.4 ML SYRINGE SC SCH (10:08)
[2020-09-28] MEDS: Empagliflozin 25 MG TAB PO SCH (10:08)
[2020-09-28 10:09] VITALS: BP 122/56
[2020-09-28] MEDS ORDERED: HYDROcodone/Acetaminophen 5/325 mg Tablet PO PRN (11:11)
[2020-09-28 11:19] VITALS: TEMP 98.1
[2020-09-28 17:14] LABS: Heparin-Induced Ab (HITA) 0.116 OD (0.000-0.400)
== END 2020-09-28 14:36 | disposition short-term general hospital (02) | DRG 280 ==
LOC: ERS 17:12 → 2SE 19:42 → 2NO 09-19 18:44
PROVIDERS: ADMIT Student in an Organized Health Care Education/Training Program; ATTEND Student in an Organized Health Care Education/Training Program
PROC: 4B02XSZ Measurement of Cardiac Pacemaker, External Approach (ICD-10-PCS; 2020-09-23)
PROC: 4B02XSZ Measurement of Cardiac Pacemaker, External Approach (ICD-10-PCS; 2020-09-25)
PROC: 02HV33Z Insertion of Infusion Device into Superior Vena Cava, Percutaneous Approach (ICD-10-PCS; principal; 2020-09-28)
PROC: B5181ZA Fluoroscopy of Superior Vena Cava using Low Osmolar Contrast, Guidance (ICD-10-PCS; 2020-09-28)
PROC: B548ZZA Ultrasonography of Superior Vena Cava, Guidance (ICD-10-PCS; 2020-09-28)
DX: I13.0 Hypertensive heart and chronic kidney disease with heart failure and stage 1 through stage 4 chronic kidney disease, or unspecified chronic kidney disease (principal); I50.43 Acute on chronic combined systolic (congestive) and diastolic (congestive) heart failure; I21.A1 Myocardial infarction type 2; J98.11 Atelectasis; L03.116 Cellulitis of left lower limb; L03.115 Cellulitis of right lower limb; E87.1 Hypo-osmolality and hyponatremia; N17.9 Acute kidney failure, unspecified; N18.4 Chronic kidney disease, stage 4 (severe); N39.0 Urinary tract infection, site not specified; I44.2 Atrioventricular block, complete; I44.30 Unspecified atrioventricular block; Z20.822 Contact with and (suspected) exposure to COVID-19; F41.9 Anxiety disorder, unspecified; F32.9 Major depressive disorder, single episode, unspecified; I25.10 Atherosclerotic heart disease of native coronary artery without angina pectoris; D63.1 Anemia in chronic kidney disease; I25.5 Ischemic cardiomyopathy; E11.22 Type 2 diabetes mellitus with diabetic chronic kidney disease; J45.909 Unspecified asthma, uncomplicated; E88.09 Other disorders of plasma-protein metabolism, not elsewhere classified; B96.20 Unspecified Escherichia coli [E. coli] as the cause of diseases classified elsewhere; E66.01 Morbid (severe) obesity due to excess calories; I95.9 Hypotension, unspecified; E78.00 Pure hypercholesterolemia, unspecified; I48.0 Paroxysmal atrial fibrillation; I49.3 Ventricular premature depolarization; Z88.1 Allergy status to other antibiotic agents; Z79.82 Long term (current) use of aspirin; Z79.4 Long term (current) use of insulin; Z79.51 Long term (current) use of inhaled steroids; Z79.899 Other long term (current) drug therapy; Z95.5 Presence of coronary angioplasty implant and graft; Z95.0 Presence of cardiac pacemaker; Z68.39 Body mass index [BMI] 39.0-39.9, adult; Z90.49 Acquired absence of other specified parts of digestive tract; Z90.710 Acquired absence of both cervix and uterus; Z98.51 Tubal ligation status
CPT/HCPCS: 36415; 36416; 36569; 71045; 80048; 80053; 81001; 82542; 82553; 82570; 82607; 82728; 82746; 83540; 83550; 83690; 83735; 83880; 84156; 84484; 85025; 87077; 87086; 87186; 93005; 93010; 93306; 93798; 96374; 96375; C1751; J0690; J0696; J1250; J1644; J1650; J1815; J1940; J2260; J3010; J3475; J3490; P9047; U0003; U0005